=== PATIENT | female | born 1950 | race Caucasian/White ===

== ENCOUNTER 2018-09-19 00:39 | Outpatient (CLI) | payer MEDICARE, SELFPAY ==
--- NOTE | 2018-09-19 10:37 | DI.MAMMO_ITS ---
SYMPTOM/DIAGNOSIS: SCREENING, Z12.31 MAMMOGRAMS: Mammograms were interpreted according to the usual protocol including computer analysis with CAD system, tomosynthesis and C view imaging. Comparison is made with prior examinations. Breast density, Category B. No masses or microcalcifications are seen. There is nothing to suggest malignancy. IMPRESSION: Negative mammogram. Routine screening is recommended. Category 1. MQSA ASSESSMENT OF FINDINGS: Negative. Category 1. Patient will receive a letter notifying them of these results. BI-RADS category B. There are scattered areas of fibroglandular density.
== END 2018-09-19 00:59 ==
PROVIDERS: PCP Family Medicine; Visit Provider Nurse Practitioner Family
DX: Z12.31 Encounter for screening mammogram for malignant neoplasm of breast (principal)
CPT/HCPCS: 77063; 77067

== ENCOUNTER 2018-11-27 06:16 | Day surgery (SDC) | payer MEDICARE, SELFPAY ==
[2018-11-27 06:30] VITALS: BP 140/81; PULSE 70; RESP 18; TEMP 35.9; O2SAT 97
[2018-11-27] MEDS: Lactated Ringers 1,000 ML 80 ML IV (06:46)
--- NOTE | 2018-11-27 06:53 | W.COLOREPORT ---
Date of service: 11/27/18 Time of Service: 07:30 Colonoscopy Report Date of procedure: 11/27/18 Pre-op diagnosis general: Family history/ hx of benign polyps Post-op diagnosis procedure note: same (and polyps, diverticulosis) Procedure: Colonoscopy with polypectomy Surgeon: Diann Quiroz Anesthesia proc note operative: MAC (Behzad Linares CRNA/ ASA 2) Estimated blood loss (mL): 3 Pathology: other (sigmoid polyp, rectal polyps x5) Complications: None Disposition: same day Indications: Mrs. Lacy is a pleasant 68-year-old female who was seen in the office for a colonoscopy. Her last colonoscopy was in 2011 and she had some benign polyps. She also has a family history of colon cancer in her mother at around age 62. Risks, benefits and complications have been reviewed. Complications include but are not limited to bleeding, pain, perforation, missed small lesion/polyp, sore throat, aspiration and adverse reaction to the medications. Questions were entertained and answered to their satisfaction and they wished to proceed. No guarantees were given or implied. Prep: Miralax/Dulcolax Procedure Start Time: 07:30 Procedure End Time: 08:04 Retraction Time: 24 minutes Findings: 1. Sigmoid diverticulosis 1. rectal polyps 3. sigmoid polyp Procedure Description: After informed consent was obtained the patient was taken to the procedure room and placed in a left decubitous position. Monitors were applied and a time out was done. The patients name, date of , procedure, allergies to medications and metal in their body was reviewed. The patient was then sedated. Once sedated and comfortable a rectal exam was done. External exam was normal. Internal exam revealed a normal sphincter tone and no palpable masses. The scope was then introduced and retro-flexed. Small grade I internal hemorrhoids were identified. The scope was then advanced to the cecum without difficulty. The TI and appendiceal orifice were identified. The prep was good. The scope was then slowly retracted over 24 minutes back into the rectum. Polyps were removed in the sigmoid colon x1 and in the rectum x5 with a cold forceps. Moderate sigmoid diverticulosis was noted. The scope was removed and the patient was woken up and taken back to Same day surgery in stable condition. The patient tolerated the procedure well and there were no immediate complications. Follow up: The patient should follow up in 5 years unless they develop changes in bowel habits or other new gastrointestinal complaints.
--- NOTE | 2018-11-27 06:55 | W.PM.DSUDISC ---
Discharge Plan Disposition Patient Disposition: HOME Condition: Good Discharge Details Reason For Visit: Colonoscopy Attending Provider: Diann Quiroz Primary Care Provider: Nelda Oscar Home Meds and New Rx's Prescriptions: Continued atenolol 50 mg tablet 50 mg PO DAILY Qty: 90 RF: 4 Discontinued bisacodyl [Dulcolax (bisacodyl)] 5 mg tablet,delayed release (DR/EC) 5 mg PO ONCE Qty: 4 RF: 0 polyethylene glycol 3350 17 gram/dose powder 255 g PO ONCE Qty: 255 RF: 0 Discharge Instructions Instructions: Colonoscopy (DC), Diverticulosis (DC), Colorectal Polyps (DC) Additional Instructions: Findings: 5 small polyps Diverticulosis small internal hemorrhoids Follow up:5 years Please call if you develop: fevers >101.5 Nausea or Vomiting Abdominal pain that is not transient DAY SURGERY UNIT POST COLONOSCOPY INSTRUCTIONS 1. Because there will be medication in your system for the next 24 hours, you may feel a little sleepy. Your coordination will be affected. Therefore: a. Do not drive or operate dangerous equipment for 24 hours. b. Do not drink alcohol beverages for 24 hours (not even beer). c. Plan to go home and rest for the day. 2. Generally there are no restrictions on your activity after a day or so has gone by, but you may feel a bit fatigued for a few days. 3 After you arrive home you may have a light meal and return to a normal diet as you can tolerate it without feeling sick to your stomach. 4. After surgery, you may feel pain or discomfort. This should be only transient, but if it persists please contact your doctor. 5. If there are any questions regarding the findings of your procedure, please feel free to contact your doctor. 6. If you are unable to contact your doctor with a problem, contact the hospital at [phone]. 7. Continue all your regular medications unless directed otherwise. I understand the above instructions and have no questions. Signature of Patient or Responsible Adult Escort Date/Time Name of Responsible Adult Escort Signature of Nurse Date/Time Activity:: Activity as Tolerated Diet:: As Tolerated Discharge Orders Discharge Orders: Discharge Order (Routine); Ordered 11/27/18 Ordered By: Diann Quiroz DS: Diagnosis Discharge Diagnosis (1) Family history of colon cancer: Status: Chronic (2) Colon polyps: Status: Acute (3) Diverticulosis: Status: Acute (4) S/P colonoscopy: Status: Acute
--- NOTE | 2018-11-27 07:55 | BOWEL_PTH ---
PATIENT: Sheryl Lacy LOC: [facility] U#:[id number] AGE/SX: 68/F ROOM: RE11/27/[address]: Diann Quiroz MD : 1950 BED: DIS: 11/27/2018 SPEC #: [id number] RECD: 11/27/18 12:47 STATUS: AARON RE #: [id number] DARREN: 11/27/18 07:[address]: Diann Quiroz DEPT: Surgical Specimen RECD BY: Autumn Madison ENTERED: 11/27/18 12:49 SP TYPE: Bowel OTHR DR: Nelda Oscar MD, DC Tissues: 1 - BIOPSY BOWEL 2 - BIOPSY BOWEL Procedures: GROSS AND MICRO LEVEL 4 Comments: [id number]
[2018-11-27 08:40] VITALS: BP 157/74; PULSE 49; RESP 16; TEMP 35.6; O2SAT 96
== END 2018-11-27 09:00 | disposition home or self-care (01) ==
PROVIDERS: PCP Family Medicine; Visit Provider Surgery
PROC: 0DJD8ZZ Inspection of Lower Intestinal Tract, Via Natural or Artificial Opening Endoscopic (ICD-10-PCS; CPT 45378; principal; 2018-11-27 07:30)
DX: Z12.11 Encounter for screening for malignant neoplasm of colon (principal); D12.5 Benign neoplasm of sigmoid colon; K62.1 Rectal polyp; K57.30 Diverticulosis of large intestine without perforation or abscess without bleeding; Z80.0 Family history of malignant neoplasm of digestive organs; I10 Essential (primary) hypertension; J44.9 Chronic obstructive pulmonary disease, unspecified; K21.9 Gastro-esophageal reflux disease without esophagitis; K64.0 First degree hemorrhoids
CPT/HCPCS: 45380; 88305

== ENCOUNTER 2019-02-16 09:06 | Day surgery (SDC) | payer MEDICARE, SELFPAY ==
[2019-02-16 09:23] VITALS: BP 161/87; PULSE 65; RESP 18; TEMP 35.1; O2SAT 97
[2019-02-16] MEDS: Lactated Ringers 1,000 ML 80 ML IV (09:49)
[2019-02-16] MEDS: ceFAZolin 1 GM/50 ML BAG IVPB (13:05)
[2019-02-16] MEDS: Bupivacaine 0.5% Pres-Free 30 ML VIAL (13:08)
[2019-02-16] MEDS: Lidocaine 1% Pres-Free 5 ML VIAL (13:08)
[2019-02-16] MEDS: Dexamethasone 4 MG/ML VIAL (14:12)
--- NOTE | 2019-02-16 14:23 | W.PM.DSUDISC ---
Discharge Plan Disposition Patient Disposition: HOME Condition: Good Discharge Details Attending Provider: Maurilio Ortega Primary Care Provider: Nelda Oscar Home Meds and New Rx's Prescriptions: No Action atenolol 50 mg tablet 50 mg PO DAILY Qty: 90 RF: 4 Discharge Instructions Stand Alone Forms: Tracy Instructions-DSU, Fallon Hancock (DSU) Activity:: Elevate Remove Dressings/Wound Care:: Do Not Remove Shower/Bathe:: Cover Diet:: Normal Diet Discharge Orders Discharge Orders: Discharge Order (Routine); Ordered 02/16/19 Ordered By: Maurilio Ortega DS: Diagnosis Discharge Diagnosis (1) Hallux valgus (acquired), right foot: Start date: 02/16/19 Start time: 14:23 Status: Acute Asessment and Plan: hallux valgus, hammer tor 2nd digit right foot
[2019-02-16 14:51] VITALS: BP 139/80; PULSE 57; RESP 16; TEMP 35.2; O2SAT 98
--- NOTE | 2019-02-16 14:58 | ROE_ITS ---
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 POSTOPERATIVE DIAGNOSIS: Same. PROCEDURE: 1. Roni bunionectomy with internal screw fixation utilizing a 2.7 and 3.5 Synthes cortical screw. 2. Arthroplasty right second toe with 0.062 K-Wire fixation. SURGEON: Maurilio Ortega D.P.M. ANESTHESIA: IV General with local block of the first and second rays. OPERATIVE INDICATIONS: 68-year-old female with progressive irritating pain associated with a right b union and hammertoe, interfering with shoe gear, weightbearing and ambulation. Non-surgical treatmen ts have failed to provide relief of symptoms. She understands risks and complications of surgery per taining to pain, scarring, infection, stiffness of the joint, malunion, nonunion, delayed union of th e osteotomy, overcorrection, undercorrection, and difficulty with the hardware. All questions have b een answered in detail. Informed consent has been obtained. REPORT OF OPERATION: Sheryl is brought to the operative suite, placed in the supine position, wh ere the right foot is prepped and draped in the usual sterile podiatric fashion. Anesthesia being ob tained, the right foot was exsanguinated and a well-padded ankle tourniquet inflated 250 mmHg. Attention was directed to the first MPJ where a 5 cm incision was made medial and parallel to the EHL tendon. The incision was deepened in controlled depth fashion. Hemostasis acquired by electrocaute ry. Lateral joint dissection was performed, performing a lateral capsulotomy adductor tendon release , fibular sesamoid mobilization. Attention was now directed to the medial joint where an inverted L- capsulotomy was performed and the head of the first metatarsal delivered into the wound. Hypertrophy along the medial and dorsal aspects of the first metatarsal head were noted. The majority of the ar ticular surface appeared viable. With power instrumentation the medial and dorsal hyperostoses were resected; all rough and bony edges rasped smooth. An offset V-osteotomy was then performed through t he capital fragment. The head was translocated laterally, impacted, fixated with a 2.7 and a 3.5 Syn thes cortical screw. Good stability was appreciated. The medial shelf was resected; all rough and b destiny edges rasped smooth. Copious irrigation was performed. The joint capsule was closed with #3-0 V icryl and a medial capsulorrhaphy performed. The hallux remained in good position. Subcutaneous lay er was repaired with #4-0 Vicryl and the skin was coapted with continuous running suture #4-0 Monocry l. Attention was directed to the second toe where two converging semi-elliptical incisions were placed d orsally at the PIPJ level. The skin wedge was excised. Soft tissue mobilization was performed. A t ransverse tenotomy capsulotomy was performed. Medial and lateral collaterals were released and the h ead of the proximal phalanx delivered into the wound. Double-action bone-cutting forceps the head wa s resected at its surgical neck; all rough and bony edges were rasped smooth. Some contracture was s till appreciated at the MPJ level. A stab incision with a #15 scalpel was then made medial to the ex tensor tendon. The blade was placed to the deep surface of the tendon; the toe was extended and exte nsor tenotomy performed. The blade was then placed down onto the MPJ level and the joint capsule was released dorsally. The digit was now in rectus position. Copious irrigation was performed. The to e was stabilized with a 0.062 K-Wire in retrograde fashion, extending proximal to the MPJ. The exten sor tendon at the PIPJ level was shortened and sutured end-to-end with #3-0 Vicryl. The skin was siobhan sed with simple interrupted suture #4-0 Nylon, as was the stab incision over the MPJ. Four milligram s of Dexamethasone Phosphate was then infused, followed by Xeroform, half-inch Steri-Strips applied o tanisha the bunion joint incision, gauze fluff compression dressings. The tourniquet was released at six ty-three minutes, vascularity returning immediately to all toes. The patient left the OR with vital signs stable, vascular status intact. Sharp and sponge counts were correct. She will be followed by me in the office next week. cc: Nelda Oscar M.D.
== END 2019-02-16 15:28 | disposition home or self-care (01) ==
PROVIDERS: PCP Family Medicine; Visit Provider Podiatrist
PROC: (CPT 28292; principal; 2019-02-16 12:30)
PROC: (CPT 28296; 2019-02-16 12:30)
DX: M20.11 Hallux valgus (acquired), right foot (principal); M21.611 Bunion of right foot; M20.41 Other hammer toe(s) (acquired), right foot; I10 Essential (primary) hypertension
CPT/HCPCS: 28296; 28285; J0690; J1100

== ENCOUNTER 2019-05-23 01:51 | Outpatient (CLI) | payer MEDICARE, SELFPAY ==
[2019-05-23 13:14] LABS: ALT 26 U/L (12-78); AST 18 U/L (15-37); Albumin 3.9 g/dL (3.4-5.0); Alkaline Phosphatase 114 U/L (46-116); Anion Gap 11.5 mmol/L (3-11); BUN 17 mg/dL (7-18); Bilirubin, Total 0.4 mg/dL (0.2-1.0); CO2 27.5 mmol/L (21.0-32.0); CREATININE 0.81 mg/dL (0.55-1.02); Calcium 9.4 mg/dL (8.5-10.1); Calculated LDL 136 mg/dL; Chloride 103 mmol/L (98-107); Cholesterol 210 mg/dL (50-200); Glucose 91 mg/dL (70-100); HDL Cholesterol 53 mg/dL (40-60); Sodium 142 mmol/L (136-145); Total Protein 7.4 g/dL (6.4-8.2); Triglyceride 105 mg/dL (30-150)
== END 2019-05-23 02:11 ==
PROVIDERS: PCP Family Medicine; Visit Provider Family Medicine
DX: E78.5 Hyperlipidemia, unspecified (principal); I10 Essential (primary) hypertension
CPT/HCPCS: 36415; 80053; 80061; 83721

== ENCOUNTER 2019-10-15 00:53 | Outpatient (CLI) | payer MEDICARE, SELFPAY ==
--- NOTE | 2019-10-15 08:08 | DI.MAMMO_ITS ---
EXAM: MG MAMMO SCREENING CLINICAL HISTORY: Screening, Z12.39 TECHNIQUE: Bilateral full field digital CC and MLO mammographic images were obtained with 3D tomosyn thesis and utilizing computer aided detection (CAD). COMPARISON: Available for comparison. FINDINGS: Masses/Architectural Distortion: None seen. There are scattered well-circumscribed nodules in both br easts. No masses or microcalcifications are seen. Microcalcifications: No suspicious pleomorphic-type are seen. Skin Thickening/Nipple Retraction: None. IMPRESSION: 1. No significant interval change with no specific features of malignancy noted. 2. Unless there is more urgent need, screening mammography is recommended, as per [employer] guidelines. ACR BI-RAD Category- 1 Negative Breast Density - Category C - Heterogeneously dense The mammogram demonstrates the patient's breast tissue is dense. Dense breast tissue is very common a nd is not abnormal but dense breast tissue can make it harder to find cancer on a mammogram. Also, de nse breast tissue may increase their breast cancer risk. This information about the result of the [facility] mogram report was provided to the patient to raise their awareness. Use this report when you speak wi th the patient about their risks for breast cancer, which includes their family history. At that time , you may recommend for more screening tests (Ultrasound or MRI) as they might be useful based on the ir risk. A negative radiographic report should not delay biopsy if a dominant or clinically suspicious mass is present. Up to ten percent of cancers are not identified on mammography. A negative report may reinforce clinical impression. Adenosis and dense breasts may obscure an underlying neoplasm. False positive reports average 6 to 10%. Patient will receive a letter notifying them of these results.
== END 2019-10-15 01:13 ==
PROVIDERS: PCP Family Medicine; Visit Provider Nurse Practitioner Family
DX: Z12.31 Encounter for screening mammogram for malignant neoplasm of breast (principal)
CPT/HCPCS: 77063; 77067

== ENCOUNTER → 2020-04-02 09:47 | Outpatient (BNVA) | payer MEDICARE, SELFPAY | PROVIDERS: PCP Family Medicine; Referring Provider Family Medicine; Visit Provider Orthopaedic Surgery | DX: M67.441 Ganglion, right hand (principal); I10 Essential (primary) hypertension | CPT/HCPCS: 99202; 99213 ==

== ENCOUNTER 2020-04-25 08:44 | Outpatient (CLI) | payer MEDICARE, SELFPAY ==
[2020-04-26 00:48] LABS: COVID-19 RT-PCR UVMMC Result Negative (Negative)
== END 2020-04-25 09:04 ==
PROVIDERS: PCP Family Medicine; Visit Provider Orthopaedic Surgery
DX: Z11.59 Encounter for screening for other viral diseases (principal); Z01.818 Encounter for other preprocedural examination
CPT/HCPCS: U0003

== ENCOUNTER 2020-04-28 07:17 | Day surgery (SDC) | payer MEDICARE, SELFPAY ==
[2020-04-28 07:34] VITALS: BP 170/90; PULSE 58; RESP 16; TEMP 36.5; O2SAT 99
[2020-04-28] MEDS: Lidocaine 2% Multi-Dose 50 ML VIAL (08:54)
--- NOTE | 2020-04-28 09:17 | PDOC.DSDIS_ITS ---
Discharge Plan Disposition Patient Disposition: HOME Condition: Good Discharge Details Reason For Visit: EXCISION MUCOUS CYST RIF Attending Provider: Eulalio Roe Primary Care Provider: Nelda Oscra Home Meds and New Rx's Prescriptions: New hydrocodone-acetaminophen 5-325 mg tablet 1 tab PO Q6H PRN (Reason: pain) Qty: 7 RF: 0 Continued hydrochlorothiazide 12.5 mg tablet 12.5 mg PO QAM Qty: 90 RF: 4 atenolol 50 mg tablet 50 mg PO DAILY Qty: 90 RF: 4 Discharge Instructions Additional Instructions: Try to elevate R index finger above heart level as much as possible overnite tonite. Keep dressings dry until return. Return to 's office in one week for wound check. Take tylenol or ibuprofen for mild pain. Take hydrocodone for breakthru pain, if needed. Referrals: Eulalio Roe MD [ [facility]FF [facility]YSICIAN] - (f/u in one week.) Activity:: Activity as Tolerated Remove Dressings/Wound Care:: Do Not Remove Shower/Bathe:: Cover Diet:: As Tolerated Discharge Orders Discharge Orders: Discharge Order (Routine); Ordered 04/28/20 Ordered By: Eulalio Roe DS: Diagnosis Discharge Diagnosis (1) Mucous cyst of finger: Status: Acute
--- NOTE | 2020-04-29 12:41 | ROE_ITS ---
Date of service: 04/28/20 Time of Service: 11:00 Operative Note Operative Note DATE OF PROCEDURE: 04/28/20 PRE-OP DIAGNOSIS: Mucous cyst right index finger POST-OP DIAGNOSIS: same PROCEDURE: Excision mucous cyst right index finger SURGEON: Eulalio Roe ANESTHESIA: local ESTIMATED BLOOD LOSS: 10 PATHOLOGY: none sent COMPLICATIONS: None Patient was transported to: same day Patient's condition: stable Indications: This is a 70-year-old white female who developed a cyst near the base of her right fingernail of her right index finger several months ago. She says that she is used a needle to miguelangel it on several occasions, but it always comes back. All she has notices some clear fluid with this. As it enlarges or causes her pain. She would like to have it removed. Risk of complication procedure explained patient detail preop. Procedure Description: Patient taken the operating room on 04/28/2020 and placed supine on the operating table. The right hand was prepped and draped free in usual sterile fashion. I performed a digital block to the right index finger at the level of the metacarpophalangeal joint. I used a 2% Xylocaine solution and point to 5% Marcaine with epinephrine solution. Once good digital block was obtained I made an incision starting at the cuticle of the nail elliptically around the mucous cyst and extending longitudinally and distally to the DIP joint. The cyst was excised along with the overlying skin. I could palpate a bony spur at the base radial base of the distal phalanx of the right index finger. I remove this bony spur with a rongeur. I undermined the skin edges with a 10 blade so they can be mobilized without tension. The wound was irrigated saline solution. I approximated the skin edges without tension using interrupted 4 nylon sutures. Wounds dressed with Xeroform gauze followed by tube gauze. Patient tolerated suture well was discharged to discharge unit good condition. Patient was given instructions to keep her dressings clean and dry until follow- up in 1 week in my office. She may use her right hand is much as discomfort allows. She should take Tylenol or ibuprofen for pain.
== END 2020-04-28 09:40 | disposition home or self-care (01) ==
PROVIDERS: PCP Family Medicine; Visit Provider Orthopaedic Surgery
PROC: (CPT 26160; principal; 2020-04-28 08:30)
DX: M25.741 Osteophyte, right hand (principal); L72.8 Other follicular cysts of the skin and subcutaneous tissue
CPT/HCPCS: 26210

== ENCOUNTER → 2020-05-06 08:45 | Outpatient (BNVA) | payer MEDICARE, SELFPAY | PROVIDERS: PCP Family Medicine; Referring Provider Family Medicine; Visit Provider Orthopaedic Surgery | DX: Z47.89 Encounter for other orthopedic aftercare (principal); M67.441 Ganglion, right hand ==

== ENCOUNTER → 2020-05-13 10:47 | Outpatient (BNVA) | payer MEDICARE, SELFPAY | PROVIDERS: PCP Family Medicine; Referring Provider Family Medicine; Visit Provider Orthopaedic Surgery | DX: Z47.89 Encounter for other orthopedic aftercare (principal); M67.441 Ganglion, right hand ==

== ENCOUNTER 2021-07-30 16:10 | Outpatient (REF) | payer MEDICARE, SELFPAY ==
[2021-07-30 17:39] LABS: ALT 23 U/L (14-59); AST 19 U/L (15-37); Albumin 4.2 g/dL (3.4-5.0); Alkaline Phosphatase 97 U/L (46-116); Anion Gap 12.5 mmol/L (3-11); BUN 18 mg/dL (7-18); Bilirubin, Total 0.5 mg/dL (0.2-1.0); CO2 25.5 mmol/L (21.0-32.0); CREATININE 1.1 mg/dL (0.55-1.02); Calcium 9.5 mg/dL (8.5-10.1); Chloride 103 mmol/L (98-107); Estimated GFR 48.96 (mL/min/1.73m2); Glucose 120 mg/dL (74-106); Potassium 3.9 mmol/L (3.5-5.1); Sodium 141 mmol/L (136-145); Total Protein 8.2 g/dL (6.4-8.2)
== END 2021-07-30 16:11 | disposition home or self-care (01) ==
LOC: LBN 16:10
PROVIDERS: PCP Family Medicine; Visit Provider Family Medicine
DX: I10 Essential (primary) hypertension (principal); E78.5 Hyperlipidemia, unspecified; R73.01 Impaired fasting glucose
CPT/HCPCS: 80053

== ENCOUNTER 2022-11-18 01:16 | Outpatient (CLI) | payer MEDICARE, SELFPAY ==
--- NOTE | 2022-11-18 07:00 | DI.CTLCSR_ITS ---
Exam(s) CT CHEST LUNG CANCER SCREEN EXAM: CT CHEST LUNG CANCER SCREEN CLINICAL HISTORY: Screening for lung cancer,former smoker, z87.891. TECHNIQUE: Imaging Protocol: Low Dose Technique CONTRAST MATERIAL: None COMPARISON: CR CHEST 2 VIEWS PA,LAT from 05/04/2016 CT CHEST FOR PULMONARY EMBOLUS from 05/06/2016 FINDINGS: CHEST: LUNGS: There is an unchanged small subpleural 4-5 mm nodule in the lateral aspect of the right lung i s either of the lower aspect of middle lobe are aspect right middle lobe. Lower down there is an unc hanged slightly larger pleural based nodule the lateral segment the right middle lobe, also unchanged from April 2016. There are benign-appearing increased markings in the posterior basal segment of the right lower lobe. There are no significant focal left lung findings. No pleural effusions on eithe r side. No significant focal findings in the trachea and mainstem bronchi. No confluent infiltrates . MEDIASTINUM: There is no obvious hilar nor mediastinal adenopathy. CARDIAC: Heart size is normal. There is no pericardial effusion.Caliber of the thoracic aorta is wit hin normal limits. OTHER: OSSEOUS: No significant osseous lesions.. IMPRESSION: 1. Stable appearance of 2 subpleural nodular densities in the right lung as described above, these un changed from prior CT scan of 05/06/2016. There are no new additional lung nodules nor pleural effus ions nor obvious intrathoracic adenopathy. 2. There are mild benign-appearing increased markings in the posterior basal segment the right lower lobe. 3. Lung RADS Cat 2 - Benign Appearance / Behavior: Nodules with a very low likelihood of becoming a c linically active cancer due to size or lack of growth Lung-RADS 1.0 CATEGORIES: Category 0 - Prior chest CT exam(s) being located for comparison. Category 1 - Annual screening in 12 months. No nodules or definitely benign nodules. Category 2 - Annual screening in 12 months. Benign appearance. Nodules with low likelihood of becomin g active cancer. Category 3 - 6-month follow-up. Probably benign. Short-term follow-up suggested. Nodules with low lik elihood of becoming active cancer. Category 4A - 3-month follow-up and CT/PET if >8 mm in size. Suspicious finding. Findings which requi re additional testing. Category 4B - Findings which require additional testing and tissue sampling. Category 4X - Category 3 or 4 nodules with additional features or imaging findings that increases the suspicion of malignancy. Modifier S- Potentially clinically significant findings (non lung cancer) RADIATION DOSE DELIVERED: 81.75mGy.cm Total DLP DATA REPOSITORY: All CT scans at this facility are submitted to the National Radiology Data Registry (NRDR) Dose Index Registry (DIR) with the [employer] (ACR). RADIATION OPTIMIZATION: All CT scans at this facility use at least one of these dose optimization te chniques: automated exposure control; mA and/or kV adjustment per patient size (includes targeted exa ms where dose is matched to clinical indication); or iterative reconstruction.
--- NOTE | 2022-11-18 07:00 | DI.US_ITS ---
Exam(s) US ABDOMEN EXAM: US ABDOMEN CLINICAL HISTORY: abdominal pain/s/p mickey,r10.9 TECHNIQUE: Ultrasound of complete upper abdomen performed using standard protocol. COMPARISON: US ABDOMEN ULTRASOUND (P) from 10/27/[address] CHEST LUNG CANCER SCREEN from 11/18/2022 FINDINGS: There is no ascites evident. LIVER: There are no hepatic lesions evident nor obvious dilatation of intrahepatic ducts. GALLBLADDER/BILIARY: Gallbladder surgically absent. The common hepatic duct isnot dilated, measuring 2mm at the level of hoang hepatis. PANCREAS: There is no evidence of pancreatic mass nor dilatation of the pancreatic duct. SPLEEN: The spleen is not enlarged and there are no intrasplenic lesions evident. KIDNEYS:Kidneys exhibit normal size with no evidence of solid mass, calculus, nor hydronephrosis. No cortical cysts evident. ABDOMINAL AORTA: The abdominal aorta is atherosclerotic. It exhibits a lack of normal tapering dista lly. IVC: Normal diameter where visualized. IMPRESSION: 1. Gallbladder surgically absent. Biliary tree is not dilated 2. Abdominal aorta appears atherosclerotic and exhibits lack of normal tapering distally. As the ne xt step I recommend either CT or Doppler ultrasound examination dedicated to the abdominal aorta and common iliac arteries. DATA REPOSITORY:
--- NOTE | 2022-11-18 07:00 | DI.RAD_ITS ---
Exam(s) XR THORACIC SPINE COMPLETE EXAM: XR THORACIC SPINE COMPLETE CLINICAL HISTORY: T6-7 pain,m54.6. TECHNIQUE: 2D digital imaging was performed. COMPARISON: No exams were available for comparison FINDINGS: 3 views There is a mild scoliosis convex left mid-lower thoracic spine. This extends from approximately T7-T 12. Is no evidence of fracture listhesis. No space narrowing there is no abnormal widening of the p araspinal lines. Bone density is age-appropriate. No osseous lesions. IMPRESSION: Mild scoliosis convex left, as described above. No other significant osseous findings in the thoraci c spinal column. DATA REPOSITORY: RADIATION DOSE DELIVERED:
== END 2022-11-18 01:36 ==
LOC: DI 01:16
PROVIDERS: PCP Family Medicine; Visit Provider Family Medicine
DX: Z87.891 Personal history of nicotine dependence (principal); R10.9 Unspecified abdominal pain; M41.9 Scoliosis, unspecified; Z12.2 Encounter for screening for malignant neoplasm of respiratory organs; R91.8 Other nonspecific abnormal finding of lung field; R93.5 Abnormal findings on diagnostic imaging of other abdominal regions, including retroperitoneum
CPT/HCPCS: 71271; 72072; 76700

== ENCOUNTER 2022-11-18 02:24 | Outpatient (CLI) | payer MEDICARE, SELFPAY ==
[2022-11-18 10:25] LABS: HCT 41.5 % (36.0-46.0); HGB 13.2 g/dL (11.2-15.7); MCH 29.5 pg (27.0-33.0); MCHC 31.8 % (32.0-36.0); MCV 93 fL (80-95); MPV 9.6 fL (8.0-11.0); Platelet Count 332 10^3/uL (130-400); RBC 4.48 10^6/uL (3.93-5.22); RDW 14.4 % (11.7-14.6)
[2022-11-18 11:05] LABS: ALT 20 U/L (14-59); AST 23 U/L (15-37); Albumin 3.6 g/dL (3.4-5.0); Alkaline Phosphatase 93 U/L (46-116); Anion Gap 9.1 mmol/L (3-11); BUN 18 mg/dL (7-18); Bilirubin, Total 0.4 mg/dL (0.2-1.0); CO2 28.9 mmol/L (21.0-32.0); CREATININE 1.1 mg/dL (0.55-1.02); Calcium 9.9 mg/dL (8.5-10.1); Chloride 106 mmol/L (98-107); Estimated GFR 53.39 (mL/min/1.73m2); Glucose 106 mg/dL (74-106); Potassium 4.7 mmol/L (3.5-5.1); Sodium 144 mmol/L (136-145); TSH (W/Ref FT4) 11.11 uIU/mL (0.36-3.74); Total Protein 8.6 g/dL (6.4-8.2)
[2022-11-18 11:32] LABS: FREE T4 1.06 ng/dL (0.76-1.46)
== END 2022-11-18 02:25 | disposition home or self-care (01) ==
LOC: LBO 02:24
PROVIDERS: PCP Family Medicine; Visit Provider Family Medicine
DX: R10.9 Unspecified abdominal pain (principal); R19.8 Other specified symptoms and signs involving the digestive system and abdomen
CPT/HCPCS: 36415; 71271; 80053; 85027; 72072; 76700; 84439; 84443

== ENCOUNTER 2022-12-28 00:16 | Outpatient (CLI) | payer MEDICARE, SELFPAY ==
--- NOTE | 2022-12-28 07:45 | DI.US_ITS ---
APPROVED REPORT EXAM: Comprehensive 2D, Doppler, and color-flow Echocardiogram Patient Location: Out-Patient Manager Export: Brigitte Oneil RDCS (AE) Indications: New murmur, HTN Other Information Study Quality: Adequate Conclusion Normal left ventricular wall thickness and chamber size. Estimated ejection fraction is 60%. Wall m otion is normal Normal right ventricular size and systolic function Left atrium is moderately dilated. Right atrial size is normal Aortic valve is sclerotic and trileaflet with trace regurgitation Thickened mitral leaflets. There is moderate to severe eccentric mitral regurgitation Normal tricuspid valve with trace regurgitation. Estimated right ventricular systolic pressure is 42 mmHg Wall motion Left Ventricle The left ventricle is normal size. The left ventricular systolic function is normal. The left ventric ular ejection fraction is within the normal range. There is normal left ventricular wall thickness. T here is normal LV segmental wall motion. There is no ventricular septal defect visualized. LVEF is 60 %. Right Ventricle The right ventricle is normal size. The right ventricular systolic function is normal. The RVSP is 41 .6 mmHg. Atria Left atrium is moderately dilated. The right atrium size is normal. The interatrial septum is intact with no evidence for an atrial septal defect. Aortic Valve The Aortic valve is mildly sclerotic. Aortic valve is trileaflet. There is no aortic valvular stenosi s. Trace aortic regurgitation. Mitral Valve Mitral valve leaflets are mildly thickened. Moderate to severe mitral regurgitation Mitral regurgita tion jet is eccentrically directed. Tricuspid Valve The tricuspid valve is normal in structure. There is no tricuspid valve stenosis. Trace tricuspid reg urgitation. Pulmonic Valve The pulmonary valve is normal in structure. There is no pulmonic valvular stenosis. Trace pulmonic re gurgitation. Great Vessels The aortic root is normal in size. Ascending aorta is not well visualized. Aortic arch is normal in c aliber. IVC is normal in size and collapses >50% with inspiration. Pericardium There is no pericardial effusion. 2D Dimensions IVSD d PLAX 0.82 cm F: 0.6-1.0 LV Vol A2C d MOD 144.1 mL LVPW d PLAX 0.87 cm F: 0.6 - 1.0 LV Vol A4C d MOD 122.7 mL LVID d PLAX 5.47 cm F: 3.8 - 5.2 LA vol/ BSA A4C s A-L 40.8 mL/m2 LVDs 3.70 cm F: 2.2 - 3.5 LA Area A4C s MOD 21.17 cm2 Ao Root d 2.28 cm F: 2.7 - 3.3 LV EF A4C MOD 59.8 % RA Area A4C 10.43 cm2 LV EF A2C MOD 58.6 % RA Vol/ BSA A4C s A-L 15.9 mL/m2 LV EF Biplane MOD 59.9 % LV EF Teichholz 59.1 % SV 81.65 mL LVEF (Strickland's) 59.88 % F: 54 - 74 SV Index 53.82 mL/m2 LV Volume 113.12 mL F: 46 - 106 LV Volume Index 74.42 mL/m2 F: 29 - 61 LV Vol Biplane MOD 136.4 mL FS 31.65 % M-Mode TAPSE 2.35 cm (M/F) >1.7 LV Diastology MV E' medial 0.054 (>0.07 m/s) E/A Ratio 1.8 LV E/e MED 23.60 (<14) MV E Vmax 1.27 (0.4-1.3 m/s) MV E' lateral 0.139 (>0.1 m/s) MV A Vmax 0.70 (0.4-1.3 m/s) LV E/e LAT 9.15 (<14) MV E/A Ratio 1.74 MV E/E' medial 23.64 MV E/E' lateral 9.15 Aortic Valve LVOT Area 3.24 cm2 AoV Area Vmax 2.10 cm2 LVOT Vmax 1.05 m/s AoV Area/ BSA (Vmax) 1.38 cm2/m2 LVOT Mean Abhijeet. 0.72 m/s CAMILLE Mean Abhijeet. 2.06 cm2 LVOT Peak Grad 4.4 mmHg CAMILLE Mean Abhijeet. Index 1.36 cm2/m2 LVOT Mean Grad 2.4 mmHg LVOT VTI 0.227 m LVOT Diam s 2.00 cm AoV Vmax 1.61 m/s Velocity Ratio 0.65 AoV Mean Abhijeet. 1.14 m/s AoV Peak Grad 10.4 mmHg LVOT SV 73.58 mL AoV Mean Grad 5.8 mmHg AoV VTI 0.342 m AoV Area VTI 2.15 cm2 AoV Area/ BSA (VTI) 1.42 cm/m2 Mitral Valve MV DT 184 (160-240 msec) MR Vmax 5.83 m/s MV PHT 53 msec MR VTI 2.049 m MV Area PHT 4.13 cm2 MR Peak Grad 136.1 mmHg MV VTI 0.486 m MR Mean Grad 87.1 mmHg MV VTI Annulus 0.501 m MR PISA Radius 0.91 cm MV Area VTI 1.56 (4.0-6.0 cm2) MR EROA 0.31 cm2 MR Aliasing Velocity 0.35 m/s MR PISA 5.19 cm2 Pulmonary Valve PV Vmax 0.86 (0.5-1.5 m/s) RVOT Peak Gr. 2.14 mmHg PV Peak Grad 3.0 mmHg RVOT Mean Gr. 1.20 mmHg PV Mean Grad 1.8 mmHg RVOT VTI 0.187 m PV VTI 0.187 m RVOT Vmax 0.73 m/s Tricuspid Valve TR Peak Grad 38.5 mmHg TR Vmax 3.10 m/s RA Pressure 3.00 mmHg RVSP (TR) 41.6 mmHg
== END 2022-12-28 00:36 ==
LOC: DI 00:16
PROVIDERS: PCP Family Medicine; Visit Provider Family Medicine
DX: I10 Essential (primary) hypertension (principal); R01.1 Cardiac murmur, unspecified
CPT/HCPCS: 93306

== ENCOUNTER 2023-06-08 03:43 | Outpatient (CLI) | payer MEDICARE, SELFPAY ==
[2023-06-08 11:11] LABS: ALT 24 U/L (14-59); AST 24 U/L (15-37); Albumin 3.6 g/dL (3.4-5.0); Alkaline Phosphatase 101 U/L (46-116); Anion Gap 9.4 mmol/L (3-11); BUN 15 mg/dL (7-18); Bilirubin, Total 0.5 mg/dL (0.2-1.0); CO2 27.6 mmol/L (21.0-32.0); CREATININE 1.2 mg/dL (0.55-1.02); Calcium 9.4 mg/dL (8.5-10.1); Chloride 101 mmol/L (98-107); Glucose 106 mg/dL (74-106); Potassium 3.3 mmol/L (3.5-5.1); Sodium 138 mmol/L (136-145); TSH (W/Ref FT4) 1.98 uIU/mL (0.36-3.74); Total Protein 7.9 g/dL (6.4-8.2)
== END 2023-06-08 03:44 | disposition home or self-care (01) ==
LOC: LOS 03:43
PROVIDERS: PCP Family Medicine; Visit Provider Family Medicine
DX: I10 Essential (primary) hypertension (principal); R79.89 Other specified abnormal findings of blood chemistry
CPT/HCPCS: 36415; 80053; 84443

== ENCOUNTER → 2023-06-27 09:19 | Outpatient (BNVA) | payer MEDICARE, SELFPAY | PROVIDERS: PCP Family Medicine; Referring Provider Family Medicine; Visit Provider Surgery | DX: K64.8 Other hemorrhoids (principal) | CPT/HCPCS: 46600; 99203 ==

== ENCOUNTER 2023-07-20 06:11 | Day surgery (SDC) | payer MEDICARE, SELFPAY ==
[2023-07-20 06:15] VITALS: BP 168/91; PULSE 61; RESP 18; TEMP 36.3; O2SAT 99
[2023-07-20] MEDS: metroNIDAZOLE 500 MG/100 ML BAG 100 MG IVPB (06:45)
[2023-07-20] MEDS: Gabapentin 300 MG CAP 600 MG PO (06:50)
[2023-07-20] MEDS: Celecoxib 200 MG CAP PO (06:51)
[2023-07-20] MEDS: Lactated Ringers 1,000 ML 80 ML IV (06:51)
[2023-07-20] MEDS: Acetaminophen 500 MG TAB 1000 MG PO (06:51)
--- NOTE | 2023-07-20 06:56 | W.PM.PROGNOT ---
Date of Service Date of service: 07/20/23 Time of Service: 07:00 Assessment and Plan Assessment and plan (1) Hemorrhoid prolapse: Status: Acute Assessment and plan: Ms Kyle is a pleasant 73-year-old female was quite active who comes in today at the request of her primary care physician because of ongoing issues with hemorrhoids.? She has both internal and external hemorrhoids on exam.? We reviewed the pathophysiology of hemorrhoids as well as the procedure of internal hemorrhoid banding and external hemorrhoid resection.? I used a pamphlet to assist in explaining the procedure.? We discussed the risks, benefits and complications.? At this time after 10 months of trialing nonsurgical treatments I think her best option is to undergo an internal and external hemorrhoidectomy with an exam under anesthesia.? The patient has a good understanding of the procedure and the complications and risks and wishes to proceed.? Complications include but are not limited to bleeding, infection, injury to the sphincter muscle with incontinence, recurrence.? We reviewed management of pain after the procedure.? Her questions were entertained and answered to her satisfaction and she wished to proceed.? No guarantees were given or implied. (2) Hemorrhoids: Status: Acute Subjective Subjective Interval history since last seen: Briatny is doing well. She has not had any worsening issues with her internal and external hemorrhoids. She has not had any upper respiratory colds. We reviewed the procedure again as well as the potential risks and complications. Exam Const General: cooperative, comfortable and no acute distress Nutritional Appearance: thin Orientation: alert and oriented x3 HENMT Head: normocephalic and atraumatic Resp Effort & Inspection: normal respiratory effort Cardio Rate: regular rate Rhythm: regular rhythm Objective Last Vital Signs Temp 97.3 F L 07/20/23 06:15 Pulse 61 07/20/23 06:15 Resp 18 07/20/23 06:15 BP 168/91 H 07/20/23 06:15 Pulse Ox 99 07/20/23 06:15 Time Spent with Patient Time Spent with Patient: <25 minutes Time was spent: counseling the patient
--- NOTE | 2023-07-20 07:00 | ROE_ITS ---
Date of service: 07/20/23 Time of Service: 08:33 Operative Note Operative Note DATE OF PROCEDURE: 07/20/23 PRE-OP DIAGNOSIS: internal and external hemorrhoids POST-OP DIAGNOSIS: same PROCEDURE: Exam under anesthesia internal hemorrhoid banding external hemorrhoid excision SURGEON: Diann Quiroz ANESTHESIA TYPE: General:No Airway and Spinal Refer to Anesthesia Record ESTIMATED BLOOD LOSS: 10 PATHOLOGY: other (hemorrhoidal tissue) COMPLICATIONS: None Patient was transported to: same day Patient's condition: stable Indications: Ms Kyle is a pleasant 73-year-old female was quite active who comes in today at the request of her primary care physician because of ongoing issues with hemorrhoids.? She has both internal and external hemorrhoids on exam.? We reviewed the pathophysiology of hemorrhoids as well as the procedure of internal hemorrhoid banding and external hemorrhoid resection.? I used a pamphlet to assist in explaining the procedure.? We discussed the risks, benefits and complications.? At this time after 10 months of trialing nonsurgical treatments I think her best option is to undergo an internal and external hemorrhoidectomy with an exam under anesthesia.? The patient has a good understanding of the procedure and the complications and risks and wishes to proceed.? Complications include but are not limited to bleeding, infection, injury to the sphincter muscle with incontinence, recurrence.? We reviewed management of pain after the procedure.? Her questions were entertained and answered to her satisfaction and she wished to proceed.? No guarantees were given or implied. Findings: internal hemorrhoids and external Procedure Description: After informed consent was obtained the patient was taken to the Operating room and asked to sit on the operating room table. A spinal was done by anesthesia. Please see their separate record. Once her buttocks and lower extremities felt heavy and numb the patient was placed in a prone position. Her buttocks were using tape on either side. She was given some sedation. Next a time out was done and the patients name, , allergies to medications, antibiotic given, procedure to be done were reviewed. Fire risk was assessed. Next the buttocks and kaity-anal area were prepped with iodine and draped in a standard fashion. Next exparel mixed 50/50 with bupivocaine was injected circumferentially around the rectum. A rectal retractor was then placed into the rectum. Next Grade 2 and 3 internal hemorrhoids as well as external hemorrhoids were identified circumferentially. The hermorrhoids were all removed using a handheld ligasure. The mucosa was re-approximated with a running 4-0 vicryl suture. The area was inspected. One small internal hemorrhoid was then noted at the 12 o'clock position and banded. The retractor was removed. Lidocaine ointment was placed into the rectum. The skin was cleaned and dried. An ABD was placed and secured with mesh panties. The patient was then placed on a gurney in a supine position and taken back to [facility]. The patient tolerated the procedure well and there were no complications.
--- NOTE | 2023-07-20 07:02 | PDOC.DSDIS_ITS ---
Date of service: 07/20/23 Time of Service: 08:51 Discharge Plan Disposition Patient Disposition: Home Condition: Stable Discharge Details Reason For Visit: hemorrhoids Attending Provider: Diann Quiroz Primary Care Provider: Nelda Oscar Home Meds and New Rx's Prescriptions: New lidocaine 5 % ointment 1 applic topical QID PRNQty: 50 1RF tramadol 50 mg tablet 50 mg PO Q6H PRNQty: 14 0RF polyethylene glycol 3350 [Miralax] 17 gram/dose powder 17 g PO DAILY Qty: 238 0RF Rx Instructions: Hold if you have diarrhea Continued psyllium husk [Metamucil] 0.4 gram capsule 0.8 g PO DAILY atenolol 50 mg tablet 50 mg PO DAILY Qty: 90 4RF Rx Instructions: in place of 25mg tabs hydrochlorothiazide 12.5 mg tablet 12.5 mg PO QAM Qty: 90 4RF triamcinolone acetonide 0.1 % cream 1 applic topical BID Qty: 80 0RF Rx Instructions: apply to foot potassium chloride 10 mEq tablet extended release 10 meq PO DAILY Qty: 30 12RF Discharge Instructions Instructions: High Fiber Diet (DC), Hemorrhoidectomy (DC) Additional Instructions: Activity at Home after surgery: 1. Make sure you walk at least 4 times per day 2. You should be able to climb a flight of stairs 3. No driving while in pain or taking pain medications 4. No strenuous activity or heavy lifting for 4 weeks (open surgery) Diet, Nutrition, & wound healin. Avoid alcohol until after you are recovered from your surgery 2. Make sure to eat plenty of lean protein (meat, fish, eggs, cottage cheese, beans) 3. Eat a variety of fruits and vegetables. Eat plenty of high fiber foods to avoid constipation. 4. Drink plenty of liquids to stay hydrated and avoid constipation Pain Medications: 1. Tylenol 650mg every 6 hours as needed and Ibuprofen 600 mg every 6 hours as needed. You may alternate between the 2 medications every 3 hours 2. If a narcotic has been prescribed take as directed only for breakthrough pain For Constipation: 1. Take Milk of Magnesia or MiraLax as needed for constipation Other: 1. You may shower daily. Do not scrub the incisions 2. Do not soak the incisions for 1 week 3. You may alternate ice and heat as needed for pain and swelling 4. Sitz baths at least 4 times a day and as needed for pain 5. You may have some bleeding. If it is more then a couple of tablespoons please call Please call our office if you develop: 1. Fevers >101.5 2. Nausea or Vomiting 3. Worsening pain 4. Redness and thick discharge from the wounds 5. Bleeding that is more then 2-3 tablespoons. 6. inability to urinate If after hours please call the Hospital at and ask to speak to the on-call surgeon Dr. Quiroz's Cell phone: [phone] (If I do not answer I may not have service. Please call the office or hospital if that is the case) Stand Alone Forms: Anesthesia Discharge InstFallon Richey (U) Referrals: Diann Quiroz MD [ [facility] STAFF PHYSICIAN] - 07/29/23 8:00 am Activity:: see above Shower/Bathe:: 24 hours Diet:: As Tolerated Discharge Orders Discharge Orders: Discharge Order (Routine); Ordered 07/20/23 Ordered By: Diann Quiroz DS: Diagnosis Discharge Diagnosis (1) Hemorrhoid prolapse: Status: Acute (2) Hemorrhoids: Status: Acute Asessment and Plan: The patient is doing well post-op from their exam under anesthesia with internal and external hemorrhoidectomy surgery.? They are having no nausea or vomiting. They are tolerating liquids and a snack. The pt is not having any chest pain or SOB.? Their pain is adequately controlled. They have been able to urinate.? ?HEENT:? no eye pain/drainage/redness/swelling. Mild sore throat ?Cardio- NSR, no chest pain, BP stable- see VS record ?Pulm: no sob or productive cough. No hemoptysis ?Incision- dressing is c/d/i w/ no excessive bleeding or drainage ?I discussed with the patient the findings at the time of surgery and the patient?s progress. ?We reviewed expectations at home; what the patient could expect for recovery time, and in the post-operative period.? We discussed the importance of walking to avoid blood clots and pneumonia.? We discussed and reviewed the patient's post-operative wound care and dressing needs.?? We reviewed their step-mckeon pain management plan, Rx called to the pharmacy of their choice.? We reviewed activity and limitations-see discharge instructions. We reviewed warning signs, and when to seek medical attention- see d/c instructions.?? Patient was given a postoperative follow-up appointment. Patient verbalized understanding of their postoperative instructions, how do to take care of themselves and their incision, and the pain management plan. Please see discharge instructions.?
--- NOTE | 2023-07-20 07:03 | W.ANESPRE ---
General Info Date of Service Date Performed: 07/20/23 Height: 5 ft 3 in Weight: 49.5 kg Body Mass Index (BMI): 19.3 Surgical Procedure: Operation Date: 07/20/23 07:40 Proposed Procedure Side Surgeon p Exam Under Anesthesia Diann Quiroz MD s Hemorrhoidectomy, Internal & External Diann Quiroz MD Meds Allergies and Home Medications Allergies Allergy/AdvReac Type Severity Reaction Status Date / Time nitrofurantoin Allergy Severe FELT LIKE Verified 07/20/23 06:30 AIRWAY WAS CLOSING UP Home Medication Medication Instructions Recorded atenolol 50 mg tablet 50 mg PO DAILY #90 tab-caps 08/02/22 hydrochlorothiazide 12.5 mg tablet 12.5 mg PO QAM #90 tabs 08/02/22 triamcinolone acetonide 0.1 % 1 applic topical BID #80 grams 06/06/23 topical cream potassium chloride 10 mEq 10 meq PO DAILY #30 tabs 06/08/23 tablet,extended release psyllium husk 0.4 gram capsule 0.8 g PO DAILY 06/27/23 (Metamucil) Current Visit Medications: Current Medications Generic Name Dose Route Start Last Admin Trade Name Freq PRN Reason Stop Dose Admin Acetaminophen 1,000 mg 07/20/23 06:00 07/20/23 06:51 Acetaminophen 500 Mg Tab PO 08/18/23 23:59 1,000 mg PREOP TYRA Administration Celecoxib 200 mg 07/20/23 06:00 07/20/23 06:51 Celecoxib 200 Mg Cap PO 08/18/23 23:59 200 mg PREOP TYRA Administration Gabapentin 600 mg 07/20/23 06:00 07/20/23 06:50 Gabapentin 300 Mg Cap PO 08/18/23 23:59 600 mg PREOP TYRA Administration Ringer's Solution 1,000 mls @ 80 mls/hr 07/20/23 06:00 07/20/23 06:51 IV 08/18/23 23:59 80 mls/hr INFUSION TYRA Administration Metronidazole 500 mg in 100 mls @ 100 mls/hr 07/20/23 06:00 07/20/23 06:45 Flagyl IVPB 07/20/23 16:00 100 mls/hr PREOP TYRA Administration Ondansetron HCl 4 mg/ Sodium 52 mls @ 200 mls/hr 07/20/23 06:53 Chloride IVPB 08/19/23 06:52 Q6H PRN PRN IV Miscellaneous Supplies 1 each 07/20/23 06:00 Iv Access IV 08/18/23 23:59 DIRECTED TYRA Sodium Chloride 0 ml 07/20/23 06:00 Normal Saline Flush 10 Ml Syr IV 08/18/23 23:59 PRN PRN Sodium Chloride 0 ml 07/20/23 06:00 Normal Saline 10 Ml Vial IJ 08/18/23 23:59 DIRECTED PRN Sterile Water 0 ml 07/20/23 06:00 Water,Injection,Sterile 10 Ml Vial IJ 08/18/23 23:59 DIRECTED PRN Tramadol HCl 50 mg 07/20/23 06:53 Tramadol 50 Mg Tab PO 08/19/23 06:52 Q6H PRN PRN Pain PFSH Active Problems Active Problems: Problem Status Onset Code Hemorrhoids K64.9 Hemorrhoid prolapse K64.8 Abnormal thyroid blood test R79.89 Pulmonary hypertension I27.20 Severe mitral regurgitation I34.0 Murmur, cardiac R01.1 Abdominal pain R10.9 Tubular adenoma of colon ~11/27/18 D12.6 Chronic interstitial cystitis N30.10 Hypertension I10 Hiatal hernia 11/11/16 K44.9 Esophagitis, erosive 10/25/16 K22.10 Cervical spondylolysis M43.02 Medical History Medical History Abdominal pain 10/24/12 Abdominal pain (10/24/12) 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 states she has not had this in a while Hallux valgus (acquired), right foot Hematuria 03/16 IVP NEG; Dr. Landeros--Urologist Hematuria History of ectopic HTN (hypertension) Hx of ectopic s/p oophorectomy Hyperlipidemia pt. states she is not sure if she has this or not. Impaired fasting glucose Elevated fasting glucose, normal f/u Impaired fasting glucose Injury of head 09/15 DISABILITY Interstitial cystitis bladder s/p cyst excision; Irritable colon Knee pain s/p ACL repair and scar revision Knee pain Mucous cyst of finger Osteopenia 10/19 DEXA: -2.1/-2.4/-2.1 Other specified diseases of gallbladder BILIARY DYSKINESIA Post-menopausal atrophic vaginitis (12/14/11) Sigmoid diverticulosis Sigmoid diverticulum Thoracic back pain Tobacco use disorder quit 11/17 Tobacco use disorder Surgical History Surgical History Abdominal hysterectomy ENDOMETRIOSIS; OOPHORECTOMY; LYSIS OF ADHESIONS 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 OLGUIN History of bilateral ligation of fallopian tubes History of bilateral tubal ligation History of bladder surgery cyst excision History of bladder surgery Ligation of fallopian tube Open Carpal Tunnel release 10/14; RIGHT , Ectopic Repair, ACL MULTIPLE ACL REPAIRS/SCAR REPAIRS S/P abdominal hysterectomy endometriosis; oophorectomy; lysis of adhesions S/P ACL repair multiple ACL repairs/scar repairs S/P carpal tunnel release right 11/14/00 S/P cholecystectomy S/P tonsillectomy and adenoidectomy Status post abdominal hysterectomy Status post carpal tunnel release Status post cholecystectomy Status post repair of anterior cruciate ligament Status post right foot surgery hammer toe and bunion Status post tonsillectomy and adenoidectomy Tonsillectomy and adenoidectomy Tobacco Smoking/Tobacco Use Status: Former Tobacco Use Passive smoking exposure: Yes Second hand exposure: Yes Alcohol Alcohol Intake: never Substance Use Substance use: Occasionally Substance use type: marijuana Vital Signs and Lab Results Vital Signs Most Recent Vital Signs in EMR: Most Recent Vital Signs Temp Pulse Resp BP Pulse Ox 36.3 C L 61 18 168/91 H 99 07/20/23 06:15 07/20/23 06:15 07/20/23 06:15 07/20/23 06:15 07/20/23 06:15 Lab Results Blood Type / Crossmatch: No Data to Display Complete Blood Count: No Data to Display Complete Metabolic Panel: No Data to Display Liver Function Panel: No Data to Display Coagulation Panel: No Data to Display Cardiac Panel: No Data to Display Arterial Blood Gas: No Data to Display Venous Blood Gas: No Data to Display Pancreas Panel: No Data to Display Thyroid Panel: No Data to Display Infectious Disease: No Data to Display Blood Cultures: No Data to Display Toxicology Panel: No Data to Display Anesthesia Assessment and Plan Anesthesia History Personal History: No History of Anesthesia Complications Family History: No Family History of Anesthesia Complications Exercise Tolerance Exercise Tolerance: Metabolic Equivalents>4 Pertinent Negatives Pertinent Negatives: No Symptoms of GERD and No Major Cardiovascular Symptoms or Complaints Cardiac & Pulmonary Exam Cardiac Exam: Normal S1/S2 Heart Sounds Pulmonary Exam: Clear Bilateral Breath Sounds Implantable Cardiac Device Does patient have a Pacemaker or an ICD?: No Airway Exam Known Difficult Airway: No Mallampati Class: 1 Mouth Opening: Normal (> 3cm) Thyromental Distance: Less than 3 cm Neck Range of Motion: Full ROM Neck Circumference: Normal Teeth Condition: Normal Dentition ASA Classification ASA Score: ASA 3 Emergency Case?: No NPO Status NPO Status: NPO Clears >2 hours, Solids >8 hours Anesthesia Plan Resuscitation Status: Full Code Anesthesia Technique: Spinal Anesthesia Airway Planned: Natural Airway Monitors Used: Standard Monitors
[2023-07-20 07:06] VITALS: BMI 19.3
--- NOTE | 2023-07-20 08:03 | HEM_PTH ---
PATIENT: Sheryl Lacy LOC: [facility] U#:[id number] AGE/SX: 73/F ROOM: RE07/20/[address]: Diann Quiroz MD : 1950 BED: DIS: 07/20/2023 SPEC #: [id number] RECD: 07/20/23 13:09 STATUS: AARON RENasima #: [id number] DARREN: 07/20/23 08:[address]: Diann Quiroz DEPT: Surgical Specimen RECD BY: Autumn Madison ENTERED: 07/20/23 13:10 SP TYPE: Hem OTHR DR: Nelda Oscar MD, DC Tissues: 1 - HEMORRHOIDS Procedures: GROSS AND MICRO LEVEL 3 Comments: [id number]
[2023-07-20 08:29] VITALS: BP 129/88; PULSE 57; RESP 16; TEMP 36; O2SAT 97
[2023-07-20] MEDS: Bupivacaine 0.25% Pres-Free 30 ML VIAL (08:29)
[2023-07-20] MEDS: Bupivacaine LIPOSOME/PF 133 MG/10 ML VIAL IJ (08:30)
[2023-07-20 09:05] VITALS: BP 147/86; PULSE 55; RESP 18; TEMP 36.2; O2SAT 97
[2023-07-20 09:41] VITALS: BP 157/88; PULSE 52; RESP 16; TEMP 36.2; O2SAT 98
--- NOTE | 2023-07-20 10:02 | W.ANESPOSTOP ---
Postoperative Evaluation Date, Time and Location Date Performed: 07/20/23 Time Performed: 09:00 Patient Location: Day Surgery Unit Vital Signs Most Recent Imported Vital Signs: Most Recent Vital Signs Temp Pulse Resp BP Pulse Ox 36.2 C L 52 L 16 157/88 H 98 07/20/23 09:41 07/20/23 09:41 07/20/23 09:41 07/20/23 09:41 07/20/23 09:41 Pain Score Most Recent Pain Score: Most Recent Pain Score Pain Level 0 07/20/23 09:05 Assessment Mental Status: Awake (Alert & Oriented to Patient Baseline) Airway and Respiratory Function: Patent airway with normal (patient baseline) respiratory exam Cardiovascular Function: Hemodynamically Stable Hydration Status: Adequately Hydrated Nausea & Vomiting: No Nausea or Vomiting Pain: Pt. Denies Any Pain Peripheral Nerve Block: Patient did not receive a nerve block
[2023-07-20 10:15] VITALS: BP 120/69; PULSE 57; RESP 16; TEMP 36.2; O2SAT 99
[2023-07-20 11:03] VITALS: BP 173/104; PULSE 55; RESP 16; TEMP 36.3; O2SAT 98
== END 2023-07-20 12:30 | disposition home or self-care (01) ==
PROVIDERS: PCP Family Medicine; Visit Provider Surgery
PROC: (CPT 46946; 2023-07-20 07:30)
DX: K64.2 Third degree hemorrhoids (principal); K64.1 Second degree hemorrhoids; K64.4 Residual hemorrhoidal skin tags
CPT/HCPCS: 46946; 46221; 88304; J1885; J2250; J2405

== ENCOUNTER → 2023-07-29 07:56 | Outpatient (BNVA) | payer MEDICARE, SELFPAY | PROVIDERS: PCP Family Medicine; Referring Provider Family Medicine; Visit Provider Surgery | DX: Z48.815 Encounter for surgical aftercare following surgery on the digestive system (principal) ==

== ENCOUNTER → 2023-08-12 09:41 | Outpatient (BNVA) | payer MEDICARE, SELFPAY | PROVIDERS: PCP Family Medicine; Referring Provider Family Medicine; Visit Provider Surgery | DX: Z48.815 Encounter for surgical aftercare following surgery on the digestive system (principal) ==

== ENCOUNTER → 2023-11-30 01:42 | Outpatient (CLI) | payer OTHER, SELFPAY ==
--- NOTE | 2023-11-30 07:45 | DI.CTLCSR_ITS ---
Exam(s) CT CHEST LUNG CANCER SCREEN EXAM: CT CHEST LUNG CANCER SCREEN CLINICAL HISTORY: Screening for lung cancer,FORMER SMOKER, Z87.891 TECHNIQUE: Imaging Protocol: Axial computed tomography images with coronal and sagittal reformatted images were created and reviewed. Low dose screening protocol. COMPARISON: CT CT CHEST LUNG CANCER SCREEN from 11/18/2022 FINDINGS: Tracheobronchial tree: No bronchiectasis or mucus plugging.. Mediastinum and Irina: No dominant adenopathy or fluid collection. Pulmonary parenchyma: No consolidation or dominant measurable mass. Mild emphysematous changes. Lung Nodules: Stable pleural based nodules in the anterior right middle lobe. Stable 3 millimeter no dule posteromedial right lower lobe. Pleura: No effusion. No pneumothorax. Heart: The left atrium and left ventricle are moderately dilated. Mild coronary artery calcification s are seen. Aorta: Thoracic aorta non-dilated. Upper abdomen: Unremarkable. Bones: Unremarkable for age. Soft Tissues: Unremarkable. IMPRESSION: No suspicious pulmonary nodules. Lung RADS Cat 2 - Benign Appearance / Behavior: Nodules with a very low likelihood of becoming a clin ically active cancer due to size or lack of growth Lung-RADS 1.0 CATEGORIES: Category 0 - Prior chest CT exam(s) being located for comparison. Category 1 - Annual screening in 12 months. No nodules or definitely benign nodules. Category 2 - Annual screening in 12 months. Benign appearance. Nodules with low likelihood of becomin g active cancer. Category 3 - 6-month follow-up. Probably benign. Short-term follow-up suggested. Nodules with low lik elihood of becoming active cancer. Category 4A - 3-month follow-up and CT/PET if >8 mm in size. Suspicious finding. Findings which requi re additional testing. Category 4B - Findings which require additional testing and tissue sampling. Category 4X - Category 3 or 4 nodules with additional features or imaging findings that increases the suspicion of malignancy. Modifier S- Potentially clinically significant findings (non lung cancer) RADIATION DOSE DELIVERED: 74.14mGy.cm Total DLP DATA REPOSITORY: All CT scans at this facility are submitted to the National Radiology Data Registry (NRDR) Dose Index Registry (DIR) with the [employer] (ACR). RADIATION OPTIMIZATION: All CT scans at this facility use at least one of these dose optimization te chniques: automated exposure control; mA and/or kV adjustment per patient size (includes targeted exa ms where dose is matched to clinical indication); or iterative reconstruction.
== END ==
PROVIDERS: PCP Family Medicine; Visit Provider Family Medicine
DX: Z87.891 Personal history of nicotine dependence (principal); Z12.2 Encounter for screening for malignant neoplasm of respiratory organs
CPT/HCPCS: 71271

== ENCOUNTER → 2024-01-03 03:59 | Outpatient (CLI) | payer OTHER, SELFPAY ==
--- NOTE | 2024-01-03 12:30 | DI.US_ITS ---
APPROVED REPORT EXAM: Comprehensive 2D, Doppler, and color-flow Echocardiogram Patient Location: Out-Patient [facility] Supervisor: Brigitte Oneil RDCS (AE) Other Information Study Quality: Adequate Conclusion Normal ventricular chamber size and wall thickness. Ejection fraction is 48 percent. 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 Right atrial size is normal Aortic valve is sclerotic and trileaflet without stenosis or regurgitation Mildly thickened mitral leaflets with severe eccentric mitral regurgitation Normal tricuspid valve, trace regurgitation. Estimated right ventricular systolic pressure is 31 mmH g Wall motion Left Ventricle The left ventricle is normal size. Left ventricular systolic function is mildly decreased. There is n ormal left ventricular wall thickness. 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 There is no ventricular septal defect visualized. LVEF is 48%. Right Ventricle The right ventricle is normal size. The right ventricular systolic function is normal. Atria Left atrium is moderately dilated. The right atrium size is normal. The interatrial septum is intact with no evidence for an atrial septal defect. Aortic Valve The Aortic valve is sclerotic. Aortic valve is trileaflet. There is no aortic valvular stenosis. No a ortic regurgitation is present. Mitral Valve Mitral valve leaflets are mildly thickened. No evidence of mitral valve stenosis. Severe mitral regu rgitation. Mitral regurgitation jet is eccentrically directed. Tricuspid Valve The tricuspid valve is normal in structure. There is no tricuspid valve stenosis. Trace tricuspid reg urgitation. The RVSP is 31.2 mmHg. Pulmonic Valve The pulmonary valve is normal in structure. There is no pulmonic valvular stenosis. Trace to mild pul monae regurgitation. Great Vessels The aortic root is normal in size. Ascending aorta is not well visualized. Aortic arch is normal in c aliber. IVC is normal in size and collapses >50% with inspiration. Pericardium There is no pericardial effusion. 2D Dimensions IVSD d PLAX 1.00 cm F: 0.6-1.0 Ao Root d 2.20 cm F: 2.7 - 3.3 LVPW d PLAX 0.98 cm F: 0.6 - 1.0 LVID d PLAX 5.29 cm F: 3.8 - 5.2 LVDs 4.09 cm F: 2.2 - 3.5 LV EF Teichholz 45.1 % FS 22.61 % LV EDV (Teich) 134.6 mL LV ESV (Teich) 73.9 mL M-Mode TAPSE 2.60 cm (M/F) >1.7 Auto EF LV EDV A4C 140.6 mL LV EDV A2C 186.3 mL LV EDV BP 161.4 mL LV ESV A4C 69.2 mL LV ESV A2C 97.1 mL LV ESV BP 84.3 mL LVEF(%) A4C 50.8 % LVEF(%) A2C 47.9 % LVEF(%) BP 47.8 % LV SV A4C 71.5 ml LV SV A2C 89.1 ml LV SV BP 77.2 ml LV CO A4C 4.4 L/min LV CO A2C 5.4 L/min LV CO BP 4.9 L/min HR A4C 61.96 BPM HR A2C 60.31 BPM LV EDV Index (BP) LV Strain Long Pk Overal Avg (s) 14.41 LA Volume LA Length A4C 5.8 cm LA Length A2C 5.7 cm LA Area A4C s 22.09 cm2 LA Area A2C s 19.65 cm2 LA Vol A4C A-L 71.59 mL LA Vol A2C A-L 57.97 mL LA Vol Biplane A-L 65.2 mL LA Vol/BSA A4C A-L LA Vol/BSA A2C A-L LA Vol/BSA BP A-L 45.0 mL/m2 LA Vol A4C MOD 67.1 mL LA Vol A2C MOD 56.2 mL LA Vol BP MOD 61.8 mL RA Volume RA Area A4C 13.6 cm2 RA ESV A4C (A-L) 36.0mL RA Vol/BSA A4C A-L RA Length A4C 4.4 cm RA ESV A4C (MOD) 34.8mL LV Diastology MV E' medial 0.066 (>0.07 m/s) MV E Vmax 1.35 (0.4-1.3 m/s) MV E/E' MED 20.28 (<14) MV A Vmax 0.85 (0.4-1.3 m/s) MV E' lateral 0.113 (>0.1 m/s) E/A Ratio 1.6 MV E/E' LAT 11.93 (<14) MV E' Average 0.090 m/s MV E/E'(average) 15.02 Aortic Valve AoV Vmax 1.71 m/s LVOT Vmax 1.05 m/s AoV Peak Grad 11.8 mmHg LVOT Peak Grad 4.4 mmHg AoV Area (Vmax) 1.58 cm2 LVOT VTI 0.221 m AoV VTI 0.392 m LVOT Mean Grad 2.1 mmHg AoV Mean Abhijeet. 1.14 m/s LVOT SV 56.80 mL AoV Mean Grad 6.0 mmHg LVOT Diam s 1.80 cm AoV Area (VTI) 1.45 cm2 Velocity Ratio 0.61 Mitral Valve MV DT 172 (160-240 msec) MR Vmax 6.08 m/s MV Vmax TIPS 1.43 m/s MR VTI 2.098 m MV Mean Grad 2.9 (<2mmHg) MR Peak Grad 148.1 mmHg MV PHT 135 msec MR Mean Grad 95.6 mmHg MV Area PHT 1.63 cm2 MR PISA Radius 0.58 cm MV VTI 0.528 m MR Aliasing Velocity 0.36 m/s Pulmonary Valve PV Vmax 0.80 (0.5-1.5 m/s) RVOT Vmax 0.69 m/s PV Peak Grad 2.6 mmHg RVOT Peak Gr. 1.9 mmHg PV Mean Abhijeet 0.56 m/s RVOT VTI 0.191 m PV Mean Grad 1.5 mmHg RVOT Mean Gr. 1.1 mmHg Tricuspid Valve RA Pressure 3.00 mmHg TR Vmax 2.66 m/s TV S' 0.14 m/s TR Peak Grad 28.2 mmHg RVSP (TR) 31.2 mmHg
== END ==
PROVIDERS: PCP Family Medicine; Visit Provider Family Medicine
DX: I10 Essential (primary) hypertension (principal); I27.20 Pulmonary hypertension, unspecified; I34.0 Nonrheumatic mitral (valve) insufficiency
CPT/HCPCS: 93306

== ENCOUNTER 2024-02-06 09:05 | Outpatient (CLI) | payer OTHER, SELFPAY ==
--- NOTE | 2024-02-06 09:00 | RT.EKG_ITS ---
APPROVED REPORT Exam: Resting ECG Reason for Exam: HTN Patient Location: O HR:65 bpm ECG Measurements Heart Rate 65 AXIS VT 164 P 80 QRSd 121 QRS 20 QT 416 T -45 QTc 433 Conclusion Sinus rhythm...normal P axis, V-rate 50- 99 Probable left atrial enlargement...P >50mS, <-0.10mV V1 Left ventricular hypertrophy...multiple LVH criteria Nonspecific T abnormalities, inferior leads...T <-0.10mV, II III aVF Baseline wander in lead(s) V1,V2,V4,V5,V6
== END 2024-02-06 09:06 | disposition home or self-care (01) ==
LOC: DI.CARD 09:06
PROVIDERS: PCP Family Medicine; Visit Provider Internal Medicine Cardiovascular Disease
DX: I34.0 Nonrheumatic mitral (valve) insufficiency (principal); I27.20 Pulmonary hypertension, unspecified
CPT/HCPCS: 93010

== ENCOUNTER → 2024-02-06 13:44 | Outpatient (BNVA) | payer OTHER, SELFPAY | PROVIDERS: PCP Family Medicine; Referring Provider Family Medicine; Visit Provider Internal Medicine Cardiovascular Disease | DX: I10 Essential (primary) hypertension (principal); R01.1 Cardiac murmur, unspecified; I42.2 Other hypertrophic cardiomyopathy; I34.0 Nonrheumatic mitral (valve) insufficiency; I27.20 Pulmonary hypertension, unspecified | CPT/HCPCS: 93005; 99214 ==

== ENCOUNTER 2024-02-13 06:08 | Outpatient (CLI) | payer OTHER, SELFPAY ==
[2024-02-13 14:23] LABS: HCT 40.6 % (36.0-46.0); HGB 13.1 g/dL (11.2-15.7); MCH 29.2 pg (27.0-33.0); MCHC 32.3 % (32.0-36.0); MCV 90 fL (80-95); MPV 10.5 fL (8.0-11.0); Platelet Count 245 10^3/uL (130-400); RBC 4.49 10^6/uL (3.93-5.22); RDW 14.7 % (11.7-14.6); WBC 11.96 10^3/uL (4.4-10.8)
[2024-02-13 14:37] LABS: INR 1.1 (0.9-1.1); PTT Activated 26.6 sec (23.6-32.8)
[2024-02-13 15:01] LABS: Anion Gap 11.9 mmol/L (3-11); BUN 30 mg/dL (7-18); CO2 27.1 mmol/L (21.0-32.0); CREATININE 1.5 mg/dL (0.55-1.02); Calcium 9.3 mg/dL (8.5-10.1); Chloride 103 mmol/L (98-107); Estimated GFR 36.57 (mL/min/1.73m2); Glucose 99 mg/dL (74-106); Potassium 3.9 mmol/L (3.5-5.1); Sodium 142 mmol/L (136-145)
== END 2024-02-13 06:09 | disposition home or self-care (01) ==
PROVIDERS: PCP Family Medicine; Visit Provider Internal Medicine Cardiovascular Disease
DX: I34.0 Nonrheumatic mitral (valve) insufficiency (principal); R01.1 Cardiac murmur, unspecified
CPT/HCPCS: 36415; 80048; 85027; 85610; 85730

== ENCOUNTER 2024-02-23 05:26 | Outpatient (CLI) | payer OTHER, SELFPAY ==
[2024-02-23 10:27] LABS: ALT 24 U/L (14-59); AST 19 U/L (15-37); Alkaline Phosphatase 96 U/L (46-116); Anion Gap 10.7 mmol/L (3-11); BUN 24 mg/dL (7-18); Bilirubin, Total 0.4 mg/dL (0.2-1.0); CO2 29.3 mmol/L (21.0-32.0); CREATININE 1.6 mg/dL (0.55-1.02); Calcium 9.5 mg/dL (8.5-10.1); Chloride 104 mmol/L (98-107); Estimated GFR 33.84 (mL/min/1.73m2); Glucose 80 mg/dL (74-106); Potassium 3.8 mmol/L (3.5-5.1); Sodium 144 mmol/L (136-145); Total Protein 8.6 g/dL (6.4-8.2)
[2024-02-23 13:06] LABS: Lab Add On Test DONE
[2024-02-23 13:13] LABS: Lab Add On Test DONE
[2024-02-23 13:24] LABS: Anion Gap 12.4 mmol/L (3-11); BUN 23 mg/dL (7-18); CO2 27.6 mmol/L (21.0-32.0); CREATININE 1.5 mg/dL (0.55-1.02); Calcium 9.6 mg/dL (8.5-10.1); Chloride 104 mmol/L (98-107); Estimated GFR 36.57 (mL/min/1.73m2); Glucose 79 mg/dL (74-106); PHOSPHORUS 4.3 mg/dL (2.6-4.7); Potassium 3.9 mmol/L (3.5-5.1); Sodium 144 mmol/L (136-145)
[2024-02-27 14:04] LABS: Albumin 55.9 % (55.8-66.1); Albumin g/dL 4.6 g/dL (3.6-5.2); Total Protein 8.2 g/dL (6.3-8.2)
[2024-03-01 11:23] LABS: Renin Activity, Plasma <0.6 ng/mL/h
== END 2024-02-23 05:27 | disposition home or self-care (01) ==
LOC: LBO 05:26
PROVIDERS: PCP Family Medicine; Visit Provider Family Medicine
DX: I10 Essential (primary) hypertension (principal); R79.89 Other specified abnormal findings of blood chemistry; R77.9 Abnormality of plasma protein, unspecified
CPT/HCPCS: 36415; 80053; 80069; 82088; 84100; 84165; 84244

== ENCOUNTER 2024-04-14 09:01 | Emergency (ER) | payer OTHER, SELFPAY ==
[2024-04-14] VITALS (19 sets, daily range): BP systolic 112–156; BP diastolic 64–109; PULSE 84–87; RESP 12–24; TEMP 36.2; O2SAT 97–100
--- NOTE | 2024-04-14 09:15 | DI.RAD_ITS ---
Exam(s) XR CHEST 2V PA LATERAL EXAM: XR CHEST 2V PA LATERAL CLINICAL HISTORY: fever, recent cabg TECHNIQUE: 2D digital imaging was performed of the chest. Images were obtained. PA and lateral v iews were obtained. COMPARISON: CR CHEST 2 VIEWS PA,LAT from 05/04/[address] CHEST LUNG CANCER SCREEN from 11/30/2023 FINDINGS: MEDIASTINUM: Normal. HEART: There is a mitral valve replacement. Status post CABG. PULMONARY VASCULATURE: Normal. LUNGS: The lungs are hyperinflated suggesting underlying COPD. No focal consolidating infiltrates ar e present. PLEURAL SPACE: There are small bilateral pleural effusions. BONE:Within normal limits for the patient's age. OTHER FINDINGS:Normal. IMPRESSION: Development of small bilateral pleural effusions. DATA REPOSITORY: RADIATION DOSE DELIVERED:
--- NOTE | 2024-04-14 09:16 | ED.GENADUL_ITS ---
Discharge Plan Disposition Patient Disposition: Home Condition: Stable Discharge Details Clinical Impression: Fever, Difficulty in urination Primary Care Provider: Nelda Oscar ED Provider: Eriberto Souza Home Meds and New Rx's Prescriptions: New cephalexin 500 mg tablet 500 mg PO QID Qty: 28 0RF Continued triamcinolone acetonide 0.1 % cream 1 applic topical BID PRN Rx Instructions: apply to foot psyllium husk [Metamucil] 0.4 gram capsule 0.8 g PO DAILY PRN warfarin 2.5 mg tablet 2.5 mg PO DAILY Protocol: Dose Management Condition: Tuesday Dose/Route: 2.5 mg Instruction: 1 x 2.5 mg tablet Condition: Tuesday Dose/Route: 2.5 mg Instruction: 1 x 2.5 mg tablet Condition: Tuesday Dose/Route: 5 mg Instruction: 2 x 2.5 mg tablets Condition: Tuesday Dose/Route: 2.5 mg Instruction: 1 x 2.5 mg tablet Condition: Dose/Route: 2.5 mg Instruction: 1 x 2.5 mg tablet Condition: Tuesday Dose/Route: 2.5 mg Instruction: 1 x 2.5 mg tablet Condition: Tuesday Dose/Route: 2.5 mg Instruction: 1 x 2.5 mg tablet Protocol Text: Adjustment Start Date: 04/12/24 INR Value: 1.5 INR Date: 04/12/24 Recheck Date: 04/19/24 acetaminophen 325 mg capsule 975 mg PO ONCE PRN Rx Instructions: per [facility] 04/08/24. -hb amoxicillin 500 mg capsule 2,000 mg PO ONCE Rx Instructions: Take 4 capsules PO ONCE, prior to any dental procedure. per [facility] 04/08/24. -hb aspirin [Adult Aspirin Regimen] 81 mg tablet,delayed release (DR/EC) 81 mg PO DAILY Rx Instructions: per [facility] 04/08/24. -hb atorvastatin 20 mg tablet 20 mg PO DAILY Rx Instructions: per [facility] 04/08/24. -hb metoprolol tartrate 50 mg tablet 50 mg PO BID Rx Instructions: per [facility] 04/08/24. -hb polyethylene glycol 3350 [Miralax] 17 gram/dose powder 17 g PO DAILY Qty: 238 0RF Rx Instructions: Hold if you have diarrhea Discharge Instructions Additional Instructions: Follow-up with your primary care provider within 1 to 2 weeks especially if not improving If you feel more ill, have severe abdominal pain or persistent vomiting return to the emergency department for reevaluation HPI General Date/Time Provider Initiated Documentation: 04/14/24 09:03 . Limitations to Documentation: no limitations . Information obtained by: patient . History of Present Illness 73 year old F presents to the emergency department with the chief complaint of difficulty urinating, described as mild, Patient started experiencing this day(s) (2) and it has been constant. No relieving factors improve symptom(s), No exac erbating factors reported . Patient notes fever/chills; denies chest pain, cough and shortness of breath. Patient did receive the following treatments prior to arrival, none Related Data Home Medications Medication Instructions Recorded Confirmed polyethylene glycol 3350 17 17 g PO DAILY #238 grams 07/20/23 04/14/24 gram/dose oral powder (Miralax) psyllium husk 0.4 gram capsule 0.8 g PO DAILY PRN 01/24/24 04/14/24 (Metamucil) triamcinolone acetonide 0.1 % 1 applic topical BID PRN 01/24/24 04/14/24 topical cream acetaminophen 325 mg capsule 975 mg PO ONCE PRN 04/10/24 04/14/24 amoxicillin 500 mg capsule 2,000 mg PO ONCE 04/10/24 04/14/24 aspirin 81 mg tablet,delayed 81 mg PO DAILY 04/10/24 04/14/24 release (Adult Aspirin Regimen) atorvastatin 20 mg tablet 20 mg PO DAILY 04/10/24 04/14/24 metoprolol tartrate 50 mg tablet 50 mg PO BID 04/10/24 04/14/24 warfarin 2.5 mg tablet 2.5 mg PO DAILY 04/10/24 04/14/24 cephalexin 500 mg tablet 500 mg PO QID #28 tabs 04/14/24 Previous Rx's Medication Instructions Recorded polyethylene glycol 3350 17 17 g PO DAILY #238 grams 07/20/23 gram/dose oral powder (Miralax) cephalexin 500 mg tablet 500 mg PO QID #28 tabs 04/14/24 Allergies Allergy/AdvReac Type Severity Reaction Status Date / Time nitrofurantoin Allergy Severe FELT LIKE Verified 04/14/24 09:08 AIRWAY WAS CLOSING UP General Stated Complaint: Urinary YEYO: 3 Review of Systems All systems reviewed & are unremarkable except as noted in HPI and below Constitutional Constitutional: Reports chills, Reports fever(s) and Denies weakness Cardiovascular Cardiovascular: Denies chest pain and Denies dyspnea Respiratory Respiratory: Denies cough and Denies dyspnea Gastrointestinal Gastrointestinal: Denies abdominal pain, Denies nausea and Denies vomiting Genitourinary Genitourinary: Reports urinary frequency Musculoskeletal Musculoskeletal: Denies joint swelling Neurologic Neurologic: Denies weakness Exam Const General: no acute distress Orientation: alert HENMT Head: normal to inspection Ears: external ears normal General nose exam: external nose normal Mouth: moist mucous membranes Eyes General: appearance normal, both eyes and all related structures Neck Neck: normal visual inspection Chest Chest: no crepitus Resp Effort & Inspection: normal respiratory effort and able to speak in complete sentences Auscultation: clear to auscultation bilaterally Cardio Jugular venous pressure: no JVD Rate: regular rate Heart Sounds: no murmurs GI Palpation: soft and nontender Skin General skin exam: no rashes or lesions noted Neuro General: patient alert and patient oriented x3 Extrem General: normal to inspection Psych Mental Status: mental status grossly normal Course Vital Signs Vital signs: Vital Signs Temperature 36.2 C L 04/14/24 09:04 Pulse 86 04/14/24 09:04 Respiratory Rate 21 04/14/24 09:04 Blood Pressure 156/109 H 04/14/24 09:04 Pulse Oximetry 99 04/14/24 09:04 Temperature 36.2 C L 04/14/24 09:07 Temperature Source Temporal Artery Scan 04/14/24 09:07 Pulse 86 04/14/24 09:04 Respiratory Rate 21 04/14/24 09:04 Respiratory Effort Normal 04/14/24 09:07 Blood Pressure 156/109 H 04/14/24 09:04 Blood Pressure Position Sitting 04/14/24 09:07 Pulse Oximetry 99 04/14/24 09:04 Oxygen Delivery Method Room Air 04/14/24 09:07 Oxygen Flow Rate 0 04/14/24 09:07 Pain Level 0 04/14/24 09:07 Lab/Test Results Lab/Test Results: 04/14/24 09:14 Blood Blood Culture - Pending 04/14/24 09:14 Blood Blood Culture - Pending Medical Decision Making 73-year-old female who underwent CABG 10 days ago and states it was uncomplicated and has been home for about a week comes in with complaints of fever and difficulty urinating. She denies any chest pain, cough, difficulty breathing, no increased pain at the incision site and no drainage or erythema. She has no abdominal pain, no headache, no neck pain or stiffness. She is alert and appears well speaking in full sentences. Incision peers to be healing well with no signs of infection, no crepitus, clear lungs, soft nontender abdomen. She says the temperature she noted that was the highest was yesterday at 100.6. Suspect possible urinary source for her infection given her symptoms, will check a CBC, CMP, lactate and procalcitonin, will also obtain a chest x-ray given her recent CABG to evaluate for possible infiltrate though seems unlikely given no respiratory symptoms. Will also obtain a UA. Labs show white count of 17, reviewed documents labs and she also had a white count of 17 last week. Reassuring procalcitonin, lactate less than 4, UA does have some bacteria, culture ordered. Discussed results with patient, she is actually no abdominal tenderness so do not feel imaging acutely indicated. Will initiate treatment for possible UTI, she is on warfarin so we will refrain from using levofloxacin or ciprofloxacin, will start her on cephalexin. She is stable for discharge, advised to follow-up with her PCP and return precautions given Differential Diagnosis Differential Diagnosis: UTI, pneumonia, Medical Records Medical records reviewed: Yes I reviewed the patient's medical records. Imaging Data Radiologic Study: Attestation: I personally reviewed and interpreted this imaging study as follows: Imaging: X-Ray Radiologist's impression: IMPRESSION: Development of small bilateral pleural effusions. Lab Data Lab results reviewed: Yes I reviewed the patient's lab results. Quality:[facility] Health Related Social Needs: No Data to Display PFSH All Active Problems (Updated 04/14/24 @ 10:45 by Eriberto Souza MD) Difficulty in urination (Acute) Fever (Acute) Chronic anticoagulation (Acute) 04/10/24 per [facility]. -hb Coronary artery disease (Chronic) Elevated serum protein level (Acute) Elevated serum creatinine (Acute) Hemorrhoids (Acute ~07/2023) Hemorrhoid prolapse (Acute) Abnormal thyroid blood test (Acute) Pulmonary hypertension (Acute) Severe mitral regurgitation (Acute) Murmur, cardiac (Acute) Abdominal pain (Acute) Tubular adenoma of colon (Acute ~11/27/18) Chronic interstitial cystitis (Acute) Hypertension (Chronic) Hiatal hernia (Chronic 11/11/16) 3 cm EGD 10/29 Esophagitis, erosive (Chronic 10/25/16) (REFLUX)-10/25/16 Cervical spondylolysis (Chronic) CHRONIC NECK PAIN; 08/17 MRI: DJD, C5-6 MILD SPINA; STENOSIS 2007 MRI showing possible anterior cord impingement; F/U [facility] Medical History (Updated 04/14/24 @ 10:45 by Eriberto Souza MD) Thoracic back pain Mucous cyst of finger Abdominal pain (10/24/12) Cataract (11/29/17) Endometriosis Hematuria History of ectopic Impaired fasting glucose Knee pain Tobacco use disorder Hallux valgus (acquired), right foot Impaired fasting glucose Elevated fasting glucose, normal f/u Hx of ectopic s/p oophorectomy Interstitial cystitis bladder s/p cyst excision; Tobacco use disorder quit 11/17 Endometriosis s/p hysterectomy Knee pain s/p ACL repair and scar revision Hematuria 03/16 IVP NEG; Dr. Landeros--Urologist Abdominal pain 10/24/12 Cataract 11/29/17 unspecified Diverticulosis Colon polyps 01/18 colonoscopy; hyperplastic polyp, sigmoid Family history of colon cancer Sigmoid diverticulum Post-menopausal atrophic vaginitis (12/14/11) Other specified diseases of gallbladder BILIARY DYSKINESIA Osteopenia 10/19 DEXA: -2.1/-2.4/-2.1 Irritable colon Injury of head 09/15 DISABILITY Hyperlipidemia pt. states she is not sure if she has this or not. Frequent urination at night (05/29/18) pt. 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 -hb H/O mitral valve repair 04/09/24 at [facility]. -hb Hx of hemorrhoidectomy (~07/20/23) Status post right foot surgery hammer toe and bunion History of bilateral ligation of fallopian tubes History of bladder surgery Status post abdominal hysterectomy Status post carpal tunnel release Status post cholecystectomy Status post repair of anterior cruciate ligament Status post tonsillectomy and adenoidectomy S/P tonsillectomy and adenoidectomy History of bilateral tubal ligation S/P abdominal hysterectomy endometriosis; oophorectomy; lysis of adhesions History of bladder surgery cyst excision S/P cholecystectomy S/P ACL repair multiple ACL repairs/scar repairs S/P carpal tunnel release right 11/14/00 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 OLGUIN Bladder Surgery CYST EXCISION Family History (Updated 02/08/24 @ 14:01 by Joie Baig) Mother , AGE 72 Howard's disease Myocardial infarction Neoplasm COLON Colon cancer Heart disease Hypertension Father , AGE 70 CAD (coronary artery disease) Myocardial infarction Stroke Alcohol abuse Heart disease Hypertension Sister Heart disease Bushra's disease Hyperlipidemia Asthma Melanoma Diabetes Brother Diabetes Heart disease Howard's disease Hyperlipidemia Sister Diabetes Hyperlipidemia Asthma Maternal Grandfather No problems noted. Paternal Grandfather No problems noted. Maternal Grandmother Dementia Paternal Grandmother No problems noted. Other Family history of Bushra's chorea Social History (Updated 02/08/24 @ 14:05 by Joie Baig) Smoking/Tobacco Use Status: Former Tobacco Use tobacco type: cigarettes Quit Date: 11/14/13 Tobacco: How many years used: 27 Second Hand Exposure: No Smoking risk assessment performed?: Yes Alcohol Intake: never Drug use: Socially Substance use type: marijuana Adopted: No Caregiver/Support person: No Household members: spouse Housing: house Number of Children: 2 number of grandchildren: 2 Communication Needs: Corrective Lenses Education Level: college Details: graduated HS, some college Do you need help understanding health information?: Rarely current occupation: retired Pets and animals: Yes Pets and animals: dog(s) Sexually active: No Do you think of yourself as: straight/heterosexual Current gender identity: female What is your relationship status?: How often do you talk on the phone with friends or family?: once per week How often do you get together with friends or relatives?: decline to answer How often do you attend congregational or worship services?: decline to answer Do you belong to any clubs or organized social groups?: decline to answer Panel score (0-1 are the most socially isolated patients): 1 What type of physical activity do you participate in: walking Duration: 30-45 minutes/day Frequency: daily Adelina/Moravian: Sabianist Special adelina needs: No Seatbelt use: always Drive 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
[2024-04-14 09:45] LABS: Abs Immature Grans 0.16 10^3/uL (0.0-0.06); HCT 29.8 % (36.0-46.0); HGB 9.7 g/dL (11.2-15.7); MCH 29.6 pg (27.0-33.0); MCHC 32.6 % (32.0-36.0); MCV 91 fL (80-95); MPV 9.5 fL (8.0-11.0); Platelet Count 483 10^3/uL (130-400); RBC 3.28 10^6/uL (3.93-5.22); RDW 15.2 % (11.7-14.6); RDW-SD 50.3 fL; WBC 17.64 10^3/uL (4.4-10.8)
[2024-04-14 09:58] LABS: ALT 56 U/L (14-59); AST 59 U/L (15-37); Albumin 2.7 g/dL (3.4-5.0); Alkaline Phosphatase 91 U/L (46-116); Anion Gap 8.8 mmol/L (3-11); BUN 18 mg/dL (7-18); Bilirubin, Total 0.6 mg/dL (0.2-1.0); CO2 24.2 mmol/L (21.0-32.0); Calcium 8.7 mg/dL (8.5-10.1); Chloride 102 mmol/L (98-107); Estimated GFR 59.49 (mL/min/1.73m2); Glucose 104 mg/dL (74-106); Magnesium 1.9 mg/dL (1.8-2.4); Potassium 3.6 mmol/L (3.5-5.1); Sodium 135 mmol/L (136-145)
[2024-04-14 10:00] LABS: Absolute Lymphocyte Count 2.82 10^3/uL (1.2-3.4); Absolute Neutrophil Count 13.05 10^3/uL (1.2-6.7)
[2024-04-14 10:01] LABS: Absolute Eosinophil Count 0.18 10^3/uL (0.0-0.7); Absolute Monocyte Count 1.59 10^3/uL (0.1-0.8); Diff Comment Manual Differential; RBC Morphology Normal
[2024-04-14 10:05] LABS: Bilirubin Negative (Negative); Blood Moderate (Negative); Clarity Clear (Clear); Glucose Negative (Negative); Ketones Negative (Negative); Leukocyte Esterase Negative (Negative); Nitrite Negative (Negative); Specific Gravity 1.025 (1.005-1.025); Urobilinogen 0.2 mg/dL (Up to 0.2); pH 5.5 (5-8)
[2024-04-14 10:18] LABS: Bacteria Few HPF (Negative); C & S Indicated? C&S Done As Ordered; Casts Negative LPF (Negative); Crystals Negative HPF (Negative); Epithelial Cells Few HPF (Negative); Mucus Trace (Negative); RBC 0-2 HPF (0-2); WBC 0-2 HPF (0-5)
[2024-04-14 10:22] LABS: Procalcitonin < 0.1 ng/mL
[2024-04-14] MEDS: Cephalexin 500 MG CAP PO (10:57)
--- NOTE | 2024-04-16 08:53 | NUR.NOTE ---
Accessed chart to look up whether or not on antibiotic for culture result. Nursing Note:
== END 2024-04-14 10:58 | disposition home or self-care (01) ==
PROVIDERS: Emergency Provider Emergency Medicine; PCP Family Medicine
DX: R39.198 Other difficulties with micturition (principal); R50.9 Fever, unspecified; Z98.61 Coronary angioplasty status
CPT/HCPCS: 36415; 80053; 84145; 87040; 99283; 71046; 81003; 81015; 83605; 83735; 85025; 87086

== ENCOUNTER 2024-05-09 01:39 | Outpatient (CLI) | payer OTHER, SELFPAY ==
[2024-05-09 12:30] LABS: INR 1.5 (0.9-1.1); Prothrombin Time 14.3 sec (9.1-11.1)
== END 2024-05-09 01:40 | disposition home or self-care (01) ==
LOC: LOS 01:39
PROVIDERS: PCP Family Medicine; Visit Provider Family Medicine
DX: Z98.890 Other specified postprocedural states (principal); I25.810 Atherosclerosis of coronary artery bypass graft(s) without angina pectoris
CPT/HCPCS: 36415; 85610

== ENCOUNTER 2024-05-11 10:00 | Outpatient (RCR) | payer OTHER, SELFPAY | END 2024-05-13 23:59 | disposition home or self-care (01) | LOC: CR 10:00 | PROVIDERS: PCP Family Medicine; Visit Provider Internal Medicine Cardiovascular Disease | DX: I25.810 Atherosclerosis of coronary artery bypass graft(s) without angina pectoris (principal) | CPT/HCPCS: S9472 ==

== ENCOUNTER 2024-05-16 02:25 | Outpatient (CLI) | payer OTHER, SELFPAY ==
[2024-05-16 13:04] LABS: ALT 25 U/L (14-59); AST 46 U/L (15-37); Albumin 3.1 g/dL (3.4-5.0); Alkaline Phosphatase 105 U/L (46-116); Anion Gap 8.6 mmol/L (3-11); BUN 29 mg/dL (7-18); Bilirubin, Total 0.62 mg/dL (0.2-1.0); CO2 26.4 mmol/L (21.0-32.0); CREATININE 1.4 mg/dL (0.55-1.02); Calcium 8.8 mg/dL (8.5-10.1); Calculated LDL 41 mg/dL (<100); Chloride 107 mmol/L (98-107); Cholesterol 129 mg/dL (<200); Estimated GFR 39.48 (mL/min/1.73m2); Glucose 93 mg/dL (74-106); HDL Cholesterol 58 mg/dL (40-60); Potassium 4.5 mmol/L (3.5-5.1); Sodium 142 mmol/L (136-145); Total Protein 7.4 g/dL (6.4-8.2); Triglyceride 154 mg/dL (<150)
== END 2024-05-16 02:26 | disposition home or self-care (01) ==
LOC: LOS 02:26
PROVIDERS: PCP Family Medicine; Visit Provider Family Medicine
DX: I10 Essential (primary) hypertension (principal)
CPT/HCPCS: 36415; 80053; 80061

== ENCOUNTER 2024-05-18 02:51 | Outpatient (CLI) | payer OTHER, SELFPAY ==
[2024-05-18 13:22] LABS: INR 1.5 (0.9-1.1); Prothrombin Time 14.2 sec (9.1-11.1)
== END 2024-05-18 02:52 | disposition home or self-care (01) ==
LOC: LOS 02:51
PROVIDERS: PCP Family Medicine; Visit Provider Family Medicine
DX: Z98.890 Other specified postprocedural states (principal)
CPT/HCPCS: 85610

== ENCOUNTER 2024-05-21 10:22 | Outpatient (RCR) | payer OTHER, SELFPAY | END 2024-06-13 23:59 | disposition home or self-care (01) | LOC: CR 10:22 | PROVIDERS: PCP Family Medicine; Visit Provider Internal Medicine Cardiovascular Disease | DX: I25.810 Atherosclerosis of coronary artery bypass graft(s) without angina pectoris (principal); Z95.5 Presence of coronary angioplasty implant and graft | CPT/HCPCS: S9472 ==

== ENCOUNTER 2024-05-29 10:49 | Observation (INO) | payer OTHER, SELFPAY ==
[2024-05-29] VITALS (22 sets, daily range): BP systolic 127–186; BP diastolic 76–117; PULSE 74–90; RESP 12–29; TEMP 36.1–37.1; O2SAT 95–100
--- NOTE | 2024-05-29 10:45 | RT.EKG_ITS ---
APPROVED REPORT Exam: Resting ECG Reason for Exam: sob Patient Location: E HR:90 bpm ECG Measurements Heart Rate 90 AXIS ND 184 P 64 QRSd 101 QRS 27 QT 400 T -30 QTc 489 Conclusion Sinus rhythm 90 normal axis no stemi
--- NOTE | 2024-05-29 11:15 | DI.RAD_ITS ---
Exam(s) XR PORTABLE CHEST AP EXAM: XR PORTABLE CHEST AP CLINICAL HISTORY: chest pain. TECHNIQUE: 2D digital imaging was performed. COMPARISON: CR XR CHEST 2V PA LATERAL from 04/14/2024 FINDINGS: Single AP portable view. Again noted are sternotomy wires, evidence of previous CABG, and a prosthetic mitral valve again note d. Heart size is upper normal. The mediastinum is not widened. There is some platelike atelectasis in the right lung base. Also blunting of both costophrenic angle s again noted, consistent with small bilateral pleural effusions. There is no airspace pulmonary isabel ma. No pneumothorax. No fractures.. IMPRESSION: Persistent small bilateral pleural effusions, similar to 04/14/2024. Sternotomy. CABG. Prosthetic mitral valve. DATA REPOSITORY: RADIATION DOSE DELIVERED:
[2024-05-29 11:28] LABS: Abs Immature Grans 0.04 10^3/uL (0.0-0.06); Absolute Basophil Count 0.15 10^3/uL (0.0-0.2); Absolute Eosinophil Count 0.68 10^3/uL (0.0-0.7); Absolute Lymphocyte Count 2.67 10^3/uL (1.2-3.4); Basophils % 1.4 %; Eosinophils % 6.2 %; HCT 32.7 % (36.0-46.0); HGB 10.2 g/dL (11.2-15.7); Immature Grans % 0.4 %; Lymphocytes % 24.4 %; MCH 29.3 pg (27.0-33.0); MCHC 31.2 % (32.0-36.0); MCV 94 fL (80-95); MPV 10.4 fL (8.0-11.0); Neutrophils % 59.6 %; Platelet Count 295 10^3/uL (130-400); RBC 3.48 10^6/uL (3.93-5.22); RDW 18.3 % (11.7-14.6); RDW-SD 62.6 fL; WBC 10.94 10^3/uL (4.4-10.8)
[2024-05-29 11:29] LABS: Absolute Monocyte Count 0.88 10^3/uL (0.1-0.8); Absolute Neutrophil Count 6.52 10^3/uL (1.2-6.7)
[2024-05-29 11:45] LABS: INR 1.8 (0.9-1.1); PTT Activated 30.4 sec (23.6-32.8); Prothrombin Time 16.9 sec (9.1-11.1)
[2024-05-29 11:47] LABS: ALT 43 U/L (14-59); AST 54 U/L (15-37); Albumin 3.5 g/dL (3.4-5.0); Alkaline Phosphatase 130 U/L (46-116); Anion Gap 11.3 mmol/L (3-11); BUN 26 mg/dL (7-18); CO2 24.7 mmol/L (21.0-32.0); CREATININE 1.5 mg/dL (0.55-1.02); Calcium 9.3 mg/dL (8.5-10.1); Chloride 105 mmol/L (98-107); Estimated GFR 36.34 (mL/min/1.73m2); Glucose 98 mg/dL (74-106); Potassium 4.2 mmol/L (3.5-5.1); Sodium 141 mmol/L (136-145); Total Protein 8.1 g/dL (6.4-8.2); Troponin I < 50 ng/L (< or =60)
[2024-05-29] MEDS: Furosemide 100 MG/10 ML VIAL 80 MG IVP (11:54)
[2024-05-29 12:11] LABS: NT-proBNP 11080 pg/mL (<300)
--- NOTE | 2024-05-29 13:09 | ED.GENADUL_ITS ---
Discharge Plan Discharge Details Chief Complaint: Dizzy/Sync Reason For Visit: sent by RYAN/DARIUS Admit Date/Time: 05/29/24 14:17 Primary Care Provider: Nelda Oscar ED Provider: Bill Pulliam Home Meds and New Rx's Prescriptions: No Action psyllium husk [Metamucil] 0.4 gram capsule 0.8 g PO DAILY PRN warfarin 2.5 mg tablet 2.5 mg PO DAILY Protocol: Dose Management Condition: Tuesday Dose/Route: 2.5 mg Instruction: 1 x 2.5 mg tablet Condition: Tuesday Dose/Route: 2.5 mg Instruction: 1 x 2.5 mg tablet Condition: Tuesday Dose/Route: 5 mg Instruction: 2 x 2.5 mg tablets Condition: Tuesday Dose/Route: 2.5 mg Instruction: 1 x 2.5 mg tablet Condition: Dose/Route: 2.5 mg Instruction: 1 x 2.5 mg tablet Condition: Tuesday Dose/Route: 2.5 mg Instruction: 1 x 2.5 mg tablet Condition: Tuesday Dose/Route: 2.5 mg Instruction: 1 x 2.5 mg tablet Protocol Text: Adjustment Start Date: Tuesday05/18/24 INR Value: 1.5 INR Date: 05/18/24 Recheck Date: 06/01/24 acetaminophen 325 mg capsule 975 mg PO ONCE PRN Rx Instructions: per [facility] Cardiology 04/08/24. -hb amoxicillin 500 mg capsule 2,000 mg PO ONCE Rx Instructions: Take 4 capsules PO ONCE, prior to any dental procedure. per [facility] Cardiology 04/08/24. -hb aspirin [Adult Aspirin Regimen] 81 mg tablet,delayed release (DR/EC) 81 mg PO DAILY Rx Instructions: per [facility] Cardiology 04/08/24. -hb atorvastatin 20 mg tablet 20 mg PO DAILY Rx Instructions: per [facility] Cardiology 04/08/24. -hb metoprolol tartrate 50 mg tablet 50 mg PO BID Rx Instructions: per [facility] Cardiology 04/08/24. -hb HPI General Date/Time Provider Initiated Documentation: 05/29/24 10:51 . Limitations to Documentation: no limitations . Information obtained by: patient . HPI Narrative: 74-year-old female with past medical history of CAD, pulmonary hypertension, recent CABG and mitral valve replacement in March presents for evaluation of shortness of breath. She reports that over the last week her shortness of breath has significantly worsened. She is no longer able to participate in cardiac rehab because she is so short of breath. Any exertion causes shortness of breath. She has no chest pain with this. She is unable to lay flat and frequently wakes up during the night because of the shortness of breath. She is no longer sleeping in her bed because of this. She had a follow-up in early May with her regional planner and things are going well. She has been compliant w ith her medications including her Coumadin. She does report approximately a 10 pound weight gain and is noted that her bilateral legs are swollen. Related Data Home Medications ?Medication ?Instructions ?Recorded ?Confirmed psyllium husk 0.4 gram capsule 0.8 g PO DAILY PRN 01/24/24 05/29/24 (Metamucil) acetaminophen 325 mg capsule 975 mg PO ONCE PRN 04/10/24 05/29/24 amoxicillin 500 mg capsule 2,000 mg PO ONCE 04/10/24 05/29/24 aspirin 81 mg tablet,delayed 81 mg PO DAILY 04/10/24 05/29/24 release (Adult Aspirin Regimen) atorvastatin 20 mg tablet 20 mg PO DAILY 04/10/24 05/29/24 metoprolol tartrate 50 mg tablet 50 mg PO BID 04/10/24 05/29/24 warfarin 2.5 mg tablet 2.5 mg PO DAILY 04/10/24 05/29/24 Allergies Allergy/AdvReac Type Severity Reaction Status Date / Time nitrofurantoin Allergy Severe FELT LIKE Verified 05/29/24 11:02 AIRWAY WAS CLOSING UP General Stated Complaint: Dizzy/Sync YEYO: 3 Exam Narrative Exam Narrative: Review of Systems: All systems reviewed & are unremarkable except as noted in HPI and below Well-developed, no acute distress NCAT PERRL, normal conjunctiva RRR + systolic murmur Unlabored respiratory effort, mild tachypnea, no hypoxia, crackles at the bases Nondistended abdomen Extremities w/o deformity, no cyanosis,1 +1 bilateral lower extremity edema no focal neurologic deficits Appropriate mood and affect Course Vital Signs Vital signs: Vital Signs Temperature 36.1 C L 05/29/24 10:55 Pulse 90 05/29/24 10:55 Respiratory Rate 26 H 05/29/24 10:55 Blood Pressure 186/111 H 05/29/24 10:55 Pulse Oximetry 100 05/29/24 10:55 Temperature 36.1 C L 05/29/24 10:55 Temperature Source Tympanic 05/29/24 10:55 Pulse 90 05/29/24 12:19 Pulse 87 05/29/24 12:19 Respiratory Rate 19 05/29/24 12:19 Respiratory Effort Normal, Non-Labored, Short of Breath 05/29/24 11:24 Respiratory Depth Normal 05/29/24 11:24 Respiratory Pattern Normal 05/29/24 11:24 Blood Pressure 181/106 H 05/29/24 12:19 Blood Pressure Mean 128 05/29/24 12:19 Blood Pressure Position Sitting 05/29/24 10:55 Pulse Oximetry 05/29/24 12:19 Oxygen Delivery Method Room Air 05/29/24 10:55 Oxygen Flow Rate 0 05/29/24 10:55 Pain Level 0 05/29/24 10:55 Lab/Test Results Lab/Test Results: Laboratory Tests Range/Units 05/29/24 11:21 WBC (4.4-10.8) 10^3/uL 10.94 H RBC (3.93-5.22) 10^6/uL 3.48 L Hgb (11.2-15.7) g/dL 10.2 L Hct (36.0-46.0) % 32.7 L MCV (80-95) fL 94 MCH (27.0-33.0) pg 29.3 MCHC (32.0-36.0) % 31.2 L RDW (11.7-14.6) % 18.3 H Plt Count (130-400) 10^3/uL 295 MPV (8.0-11.0) fL 10.4 Immature Gran % % 0.4 Neutrophils % % 59.6 Lymphocytes % % 24.4 Monocytes % % 8.0 Eosinophils % % 6.2 Basophils % % 1.4 Nucleated RBC % (0.0-0.3) % 0.0 Absolute Neutrophils (1.2-6.7) 10^3/uL 6.52 Absolute Lymphocytes (1.2-3.4) 10^3/uL 2.67 Absolute Monocytes (0.1-0.8) 10^3/uL 0.88 H Absolute Eosinophils (0.0-0.7) 10^3/uL 0.68 Absolute Basophils (0.0-0.2) 10^3/uL 0.15 PT (9.1-11.1) sec 16.9 H INR (0.9-1.1) 1.8 H APTT (23.6-32.8) sec 30.4 Sodium (136-145) mmol/L 141 Potassium (3.5-5.1) mmol/L 4.2 Chloride (98-107) mmol/L 105 Carbon Dioxide (21.0-32.0) mmol/L 24.7 Anion Gap (3-11) mmol/L 11.3 H BUN (7-18) mg/dL 26 H Creatinine (0.55-1.02) mg/dL 1.5 H Est GFR (CKD-EPI 2020) (mL/min/1.73m2) 36.34 Glucose (74-106) mg/dL 98 Calcium (8.5-10.1) mg/dL 9.3 Total Bilirubin (0.2-1.0) mg/dL 1.20 H AST (15-37) U/L 54 H ALT (14-59) U/L 43 Alkaline Phosphatase (46-116) U/L 130 H Troponin I (< or =60) ng/L < 50 NT-Pro-B Natriuret Pep (<300) pg/mL 67473 H Total Protein (6.4-8.2) g/dL 8.1 Albumin (3.4-5.0) g/dL 3.5 Medical Decision Making Emergent evaluation shortness of breath. Initial differential includes unstable angina, CHF, volume overload. I reviewed her medical record discharge summary from [facility]. In addition to her most recent CT surgery appointment on May 15. It seems that she was doing well. She is gained several pounds since her initial admission and does have symptoms and signs concerning for volume overload. She is not hypoxic or requiring any respiratory distress Lab work was obtained, mild leukocytosis. Anemia improved INR slightly low therapeutic levels. Renal function at baseline. BNP significantly elevated over 11,000. Troponin is not elevated. Chest x-ray does demonstrate bilateral pleural effusions. Given this constellation of symptoms, IV Lasix was initiated. Patient does not normally take a diuretic at home. I will discuss with her cardiac surgeon as she is only 2 months postop. 1310 . Transfer center called and reports that cardiac surgeon would like an echocardiogram Patient is stable and is diuresing appropriately. Will continue diuresis admitted to the hospital for this. Will try to get INR into therapeutic range and get the echocardiogram as requested by the cardiac surgeons. Discussed with the hospitalist here who will admit the patient to their service for further management and continued discussion and treatment plan with cardiac surgery at [facility] as needed. Medical Records Medical records reviewed: Yes I reviewed the patient's medical records. Lab Data Lab results reviewed: Yes I reviewed the patient's lab results. Quality:[facility] Health Related Social Needs: No Data to Display PFSH All Active Problems (Updated 05/29/24 @ 14:52 by Matt Donis MD) CHF exacerbation (Acute) Chronic anticoagulation (Acute) 04/10/24 per [facility]. -hb Coronary artery disease (Chronic) Elevated serum protein level (Acute) Elevated serum creatinine (Acute) Hemorrhoids (Acute ~07/2023) Hemorrhoid prolapse (Acute) Abnormal thyroid blood test (Acute) Pulmonary hypertension (Acute) Severe mitral regurgitation (Acute) Murmur, cardiac (Acute) Abdominal pain (Acute) Tubular adenoma of colon (Acute ~11/27/18) Chronic interstitial cystitis (Acute) Hypertension (Chronic) Hiatal hernia (Chronic 11/11/16) 3 cm EGD 10/29 Esophagitis, erosive (Chronic 10/25/16) (REFLUX)-10/25/16 Cervical spondylolysis (Chronic) CHRONIC NECK PAIN; 08/17 MRI: DJD, C5-6 MILD SPINA; STENOSIS 2007 MRI showing possible anterior cord impingement; F/U [facility] Medical History (Updated 05/29/24 @ 14:52 by Matt Donis MD) Thoracic back pain Mucous cyst of finger Abdominal pain (10/24/12) Cataract (11/29/17) Endometriosis Hematuria History of ectopic Impaired fasting glucose Knee pain Tobacco use disorder Hallux valgus (acquired), right foot Impaired fasting glucose Elevated fasting glucose, normal f/u Hx of ectopic s/p oophorectomy Interstitial cystitis bladder s/p cyst excision; Tobacco use disorder quit 11/17 Endometriosis s/p hysterectomy Knee pain s/p ACL repair and scar revision Hematuria 03/16 IVP NEG; Dr. Landeros--Urologist Abdominal pain 10/24/12 Cataract 11/29/17 unspecified Diverticulosis Colon polyps 01/18 colonoscopy; hyperplastic polyp, sigmoid Family history of colon cancer Sigmoid diverticulum Post-menopausal atrophic vaginitis (12/14/11) Other specified diseases of gallbladder BILIARY DYSKINESIA Osteopenia 10/19 DEXA: -2.1/-2.4/-2.1 Irritable colon Injury of head 09/15 DISABILITY Hyperlipidemia pt. states she is not sure if she has this or not. Frequent urination at night (05/29/18) pt. 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 -hb S/P CABG x 2 04/09/2024. -hb Hx of hemorrhoidectomy (~07/20/23) Status post right foot surgery hammer toe and bunion History of bilateral ligation of fallopian tubes History of bladder surgery Status post abdominal hysterectomy Status post carpal tunnel release Status post cholecystectomy Status post repair of anterior cruciate ligament Status post tonsillectomy and adenoidectomy S/P tonsillectomy and adenoidectomy History of bilateral tubal ligation S/P abdominal hysterectomy endometriosis; oophorectomy; lysis of adhesions History of bladder surgery cyst excision S/P cholecystectomy S/P ACL repair multiple ACL repairs/scar repairs S/P carpal tunnel release right 11/14/00 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 OLGUIN Bladder Surgery CYST EXCISION Family History (Updated 02/08/24 @ 14:01 by Joie Baig) Mother , AGE 72 Bushra's disease Myocardial infarction Neoplasm COLON Colon cancer Heart disease Hypertension Father , AGE 70 CAD (coronary artery disease) Myocardial infarction Stroke Alcohol abuse Heart disease Hypertension Sister Heart disease Jakin's disease Hyperlipidemia Asthma Melanoma Diabetes Brother Diabetes Heart disease Bushra's disease Hyperlipidemia Sister Diabetes Hyperlipidemia Asthma Maternal Grandfather No problems noted. Paternal Grandfather No problems noted. Maternal Grandmother Dementia Paternal Grandmother No problems noted. Other Family history of Bushra's chorea Social History (Updated 02/08/24 @ 14:05 by Joie Baig) Smoking/Tobacco Use Status: Former Tobacco Use tobacco type: cigarettes Quit Date: 11/14/13 Tobacco: How many years used: 27 Second Hand Exposure: No Smoking risk assessment performed?: Yes Alcohol Intake: never Drug use: Socially Substance use type: marijuana Adopted: No Caregiver/Support person: No Household members: spouse Housing: house Number of Children: 2 number of grandchildren: 2 Communication Needs: Corrective Lenses Education Level: college Details: graduated HS, some college Do you need help understanding health information?: Rarely current occupation: retired Pets and animals: Yes Pets and animals: dog(s) Sexually active: No Do you think of yourself as: straight/heterosexual Current gender identity: female What is your relationship status?: How often do you talk on the phone with friends or family?: once per week How often do you get together with friends or relatives?: decline to answer How often do you attend uatsdin or caodaism services?: decline to answer Do you belong to any clubs or organized social groups?: decline to answer Panel score (0-1 are the most socially isolated patients): 1 What type of physical activity do you participate in: walking Duration: 30-45 minutes/day Frequency: daily Adelina/Christian: Rastafari Special adelina needs: No Seatbelt use: always Drive intox or ride w/intox professional driver: No Firearms in home: Yes Firearms unloaded and locked: Yes Do you feel safe at home: Yes Do you feel safe in your relationship?: Yes
--- NOTE | 2024-05-29 14:17 | HPE_ITS ---
Date of service: 05/29/24 Time of Service: 14:50 Assessment and Plan Assessment and plan (1) CHF exacerbation: Status: Acute Assessment and plan: -Patient presented with signs and symptoms consistent with CHF though does not have formal diagnosis of congestive heart failure and is not on any diuretics despite 05/15 echo findings as noted below -She did recently have 2 vessel bypass and mitral valve surgery -an echocardiogram done on 05/15which showed moderately dilated left ventricle, decrease in ventricular systolic function 45 to 50%, and segmental wall motion abnormalities including basal inferior septal/inferior aneurysm area as well as mildly decreased right ventricular systolic pressure -[facility] cardiology requested repeat echo which will be done on 05/30 (2) Severe mitral regurgitation: Status: Acute Assessment and plan: -s/p mitral valve repair on 04/09/2024 ar [facility] -[facility] contributing factor in new heart failure as noted above -continue warfarin and metoprolol (3) Coronary artery disease: Status: Chronic Assessment and plan: -s/p CABG 2x on 04/09/2024 -continue home asa, statin, lopressor Qualifiers: Associated angina: unspecified whether angina present Coronary Disease- Associated Artery/Lesion type: [place] artery [place] [facility] Qualified Code(s): I25.10 - Atherosclerotic heart disease of [place] coronary artery without angina pectoris History of Present Illness History of Present Illness Chief Complaint: shortness of breath Narrative: 74-year-old female with past medical history of coronary artery disease, severe mitral valve regurgitation and pulmonary hypertension status post mitral valve repair and two-vessel bypass at [facility] on 04/09/2024 presents the emergency department with progressively worsening shortness of breath. Patient states that she had been doing cardiac rehab after her CABG and mitral valve surgery but she stopped going as her exertional shortness of breath became too much for her to continue doing rehab. Since that time she has had ongoing progressive worsening of shortness of breath that prompted her to present to the emergency department. She denies any chest pain, lightheadedness, dizziness, cough, nausea vomiting or diarrhea. In the emergency department the patient was noted as having normal vital signs with slightly elevated blood pressure with systolics in the 170s to 180s, elevated respiratory rate in the high 20's, but saturating in the high 90's on room air. Her CBC and CMP were unremarkable however she was noted as having an elevated proBNP of 11,080, and had an unchanged EKG and troponin. While in the emergency department the patient was given 80 mg of IV Lasix and it was documented as having 850 mL of urine output as 15:03. Emergency room physician also discussed case with patient's internal affairs commander at [facility] who agreed with admitting the patient for diuresis and requested repeat echocardiogram despite 1 being done on May 15, 2024. Which the emergency room physician paged hospitalist for admission for patient with signs and symptoms consistent with an acute exacerbation of CHF. Review of Systems All systems reviewed & are unremarkable except as noted in HPI and below PFSH All Active Problems (Updated 05/29/24 @ 15:40 by Bill Pulliam MD) Breath shortness (Acute) Pleural effusion (Acute) CHF exacerbation (Acute) Chronic anticoagulation (Acute) 04/10/24 per [facility]. -hb Coronary artery disease (Chronic) Elevated serum protein level (Acute) Elevated serum creatinine (Acute) Hemorrhoids (Acute ~07/2023) Hemorrhoid prolapse (Acute) Abnormal thyroid blood test (Acute) Pulmonary hypertension (Acute) Severe mitral regurgitation (Acute) Murmur, cardiac (Acute) Abdominal pain (Acute) Tubular adenoma of colon (Acute ~11/27/18) Chronic interstitial cystitis (Acute) Hypertension (Chronic) Hiatal hernia (Chronic 11/11/16) 3 cm EGD 10/29 Esophagitis, erosive (Chronic 10/25/16) (REFLUX)-10/25/16 Cervical spondylolysis (Chronic) CHRONIC NECK PAIN; 08/17 MRI: DJD, C5-6 MILD SPINA; STENOSIS 2007 MRI showing possible anterior cord impingement; F/U [facility] Medical History (Updated 05/29/24 @ 15:40 by Bill Pulliam MD) Thoracic back pain Mucous cyst of finger Abdominal pain (10/24/12) Cataract (11/29/17) Endometriosis Hematuria History of ectopic Impaired fasting glucose Knee pain Tobacco use disorder Hallux valgus (acquired), right foot Impaired fasting glucose Elevated fasting glucose, normal f/u Hx of ectopic s/p oophorectomy Interstitial cystitis bladder s/p cyst excision; Tobacco use disorder quit 1/04 Endometriosis s/p hysterectomy Knee pain s/p ACL repair and scar revision Hematuria 03/16 IVP NEG; Dr. Landeros--Urologist Abdominal pain 10/24/12 Cataract 11/29/17 unspecified Diverticulosis Colon polyps 01/18 colonoscopy; hyperplastic polyp, sigmoid Family history of colon cancer Sigmoid diverticulum Post-menopausal atrophic vaginitis (12/14/11) Other specified diseases of gallbladder BILIARY DYSKINESIA Osteopenia 10/19 DEXA: -2.1/-2.4/-2.1 Irritable colon Injury of head 09/15 DISABILITY Hyperlipidemia pt. states she is not sure if she has this or not. Frequent urination at night (05/29/18) pt. 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 -hb S/P CABG x 2 04/09/2024. -hb Hx of hemorrhoidectomy (~07/20/23) Status post right foot surgery hammer toe and bunion History of bilateral ligation of fallopian tubes History of bladder surgery Status post abdominal hysterectomy Status post carpal tunnel release Status post cholecystectomy Status post repair of anterior cruciate ligament Status post tonsillectomy and adenoidectomy S/P tonsillectomy and adenoidectomy History of bilateral tubal ligation S/P abdominal hysterectomy endometriosis; oophorectomy; lysis of adhesions History of bladder surgery cyst excision S/P cholecystectomy S/P ACL repair multiple ACL repairs/scar repairs S/P carpal tunnel release right 11/14/00 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 OLGUIN Bladder Surgery CYST EXCISION Family History (Updated 02/08/24 @ 14:01 by Joie Baig) Mother , AGE 72 Perry's disease Myocardial infarction Neoplasm COLON Colon cancer Heart disease Hypertension Father , AGE 70 CAD (coronary artery disease) Myocardial infarction Stroke Alcohol abuse Heart disease Hypertension Sister Heart disease Perry's disease Hyperlipidemia Asthma Melanoma Diabetes Brother Diabetes Heart disease Perry's disease Hyperlipidemia Sister Diabetes Hyperlipidemia Asthma Maternal Grandfather No problems noted. Paternal Grandfather No problems noted. Maternal Grandmother Dementia Paternal Grandmother No problems noted. Other Family history of Perry's chorea Social History (Updated 02/08/24 @ 14:05 by Joie Baig) Smoking/Tobacco Use Status: Former Tobacco Use tobacco type: cigarettes Quit Date: 11/14/13 Tobacco: How many years used: 27 Second Hand Exposure: No Smoking risk assessment performed?: Yes Alcohol Intake: never Drug use: Socially Substance use type: marijuana Adopted: No Caregiver/Support person: No Household members: spouse Housing: house Number of Children: 2 number of grandchildren: 2 Communication Needs: Corrective Lenses Education Level: college Details: graduated HS, some college Do you need help understanding health information?: Rarely current occupation: retired Pets and animals: Yes Pets and animals: dog(s) Sexually active: No Do you think of yourself as: straight/heterosexual Current gender identity: female What is your relationship status?: How often do you talk on the phone with friends or family?: once per week How often do you get together with friends or relatives?: decline to answer How often do you attend cheondoism or islam services?: decline to answer Do you belong to any clubs or organized social groups?: decline to answer Panel score (0-1 are the most socially isolated patients): 1 What type of physical activity do you participate in: walking Duration: 30-45 minutes/day Frequency: daily Adelina/Temple: Buddhism Special adelina needs: No Seatbelt use: always Drive intox or ride w/intox hazmat tanker driver: No Firearms in home: Yes Firearms unloaded and locked: Yes Do you feel safe at home: Yes Do you feel safe in your relationship?: Yes Meds Allergies and Home Medications Allergies Allergy/AdvReac Type Severity Reaction Status Date / Time nitrofurantoin Allergy Severe FELT LIKE Verified 05/29/24 11:02 AIRWAY WAS CLOSING UP Home Medications ?Medication ?Instructions ?Recorded ?Confirmed ?Type psyllium husk 0.4 gram capsule 0.8 g PO DAILY PRN 01/24/24 05/29/24 History (Metamucil) acetaminophen 325 mg capsule 975 mg PO ONCE PRN 04/10/24 05/29/24 History amoxicillin 500 mg capsule 2,000 mg PO ONCE 04/10/24 05/29/24 History aspirin 81 mg tablet,delayed 81 mg PO DAILY 04/10/24 05/29/24 History release (Adult Aspirin Regimen) atorvastatin 20 mg tablet 20 mg PO DAILY 04/10/24 05/29/24 History metoprolol tartrate 50 mg tablet 50 mg PO BID 04/10/24 05/29/24 History warfarin 2.5 mg tablet 2.5 mg PO DAILY 04/10/24 05/29/24 History Exam Narrative Exam Narrative: Well-appearing female sitting up in the chair no acute distress, ANO x 4, heart regular rhythm, lungs clear to auscultation bilaterally, abdomen soft, nontender, nondistended Results Labs 05/29/24 11:21 05/29/24 11:21 Labs: Laboratory Results - last 24 hr 05/29/24 11:21 WBC 10.94 H RBC 3.48 L Hgb 10.2 L Hct 32.7 L MCV 94 MCH 29.3 MCHC 31.2 L RDW 18.3 H Plt Count 295 MPV 10.4 Immature Gran % 0.4 Neutrophils % 59.6 Lymphocytes % 24.4 Monocytes % 8.0 Eosinophils % 6.2 Basophils % 1.4 Nucleated RBC % 0.0 Absolute Neutrophils 6.52 Absolute Lymphocytes 2.67 Absolute Monocytes 0.88 H Absolute Eosinophils 0.68 Absolute Basophils 0.15 PT 16.9 H INR 1.8 H APTT 30.4 Sodium 141 Potassium 4.2 Chloride 105 Carbon Dioxide 24.7 Anion Gap 11.3 H BUN 26 H Creatinine 1.5 H Est GFR (CKD-EPI 2020) 36.34 Glucose 98 Calcium 9.3 Total Bilirubin 1.20 H AST 54 H ALT 43 Alkaline Phosphatase 130 H Troponin I < 50 NT-Pro-B Natriuret Pep 18308 H Total Protein 8.1 Albumin 3.5 Last Vital Signs Temp 97 F L 05/29/24 10:55 Pulse 90 05/29/24 12:19 Resp 19 05/29/24 12:19 BP 181/106 H 05/29/24 12:19 Pulse Ox 100 05/29/24 12:19 Time Spent Time spent with Patient: >75 minutes Time was spent: preparing to see the patient(eg.review tests), obtaining and/or reviewing separately otained hiistory, ordering medications,tests, procedures, referring, communicating with other health care support representative, indepentently interpreting results, counseling the patient and care coordination
[2024-05-29 14:56] LABS: Troponin I < 50 ng/L (< or =60)
--- NOTE | 2024-05-29 15:32 | W.PC.ACHO ---
Registration Status: Primary Language: Preferred Language: ED Information & Data Chief Complaint Dizzy/Sync 05/29/24 13:10 Triage Note SOB for last week, increased 05/29/24 10:55 swelling in bilat feet, light headed, nauseated, worse at night. Subjective states sob upon exertion 05/29/24 11:24 Medical / Surgical History (Last Reviewed 02/06/24 @ 14:19 by Cara Wilkins MD) Thoracic back pain Mucous cyst of finger Abdominal pain (10/24/12) Cataract (11/29/17) Endometriosis Hematuria History of ectopic Impaired fasting glucose Knee pain Tobacco use disorder Hallux valgus (acquired), right foot Impaired fasting glucose Hx of ectopic Interstitial cystitis Tobacco use disorder Endometriosis Knee pain Hematuria Abdominal pain Cataract Diverticulosis Colon polyps Family history of colon cancer Sigmoid diverticulum Post-menopausal atrophic vaginitis (12/14/11) Other specified diseases of gallbladder Osteopenia Irritable colon Injury of head Hyperlipidemia Frequent urination at night (05/29/18) Duodenitis Carpal tunnel syndrome 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) HTN (hypertension) Family history of [place]'s chorea Cervical spondylolysis Sigmoid diverticulosis (Last Updated 05/09/24 @ 09:12 by Consuelo Bernal RN) H/O mitral valve repair S/P CABG x 2 Hx of hemorrhoidectomy (~07/20/23) Status post right foot surgery History of bilateral ligation of fallopian tubes History of bladder surgery Status post abdominal hysterectomy Status post carpal tunnel release Status post cholecystectomy Status post repair of anterior cruciate ligament Status post tonsillectomy and adenoidectomy S/P tonsillectomy and adenoidectomy History of bilateral tubal ligation S/P abdominal hysterectomy History of bladder surgery S/P cholecystectomy S/P ACL repair S/P carpal tunnel release Acquired absence of both cervix and uterus (10/19/16) Ligation of fallopian tube Tonsillectomy and adenoidectomy Repair, ACL , Ectopic Open Carpal Tunnel release Abdominal hysterectomy EGD - MAC (10/25/16) Colonoscopy - MAC Cholecystectomy (~2011) Extraction of cataract Bladder Surgery Most Recent Vital Signs Temperature 36.1 C L 05/29/24 10:55 Temperature Source Tympanic 05/29/24 10:55 Pulse 78 05/29/24 14:01 Pulse 79 05/29/24 14:01 Respiratory Rate 28 H 05/29/24 14:01 Respiratory Effort Normal, Non-Labored, Short of Breath 05/29/24 11:24 Respiratory Depth Normal 05/29/24 11:24 Respiratory Pattern Normal 05/29/24 11:24 Blood Pressure 172/108 H 05/29/24 14:01 Blood Pressure Mean 127 05/29/24 14:01 Blood Pressure Position Sitting 05/29/24 10:55 Pulse Oximetry 97 05/29/24 14:01 Oxygen Delivery Method Room Air 05/29/24 10:55 Oxygen Flow Rate 0 05/29/24 10:55 Pain Level 0 05/29/24 10:55 Allergies nitrofurantoin Allergy (Severe, Verified 05/29/24 11:02) FELT LIKE AIRWAY WAS CLOSING UP Precautions Isolation Standard precaution 05/29/24 11:24 IV IV Catheter Type [Left Saline Lock Antecubital] IV Catheter Gauge [Left 20 Antecubital] Diet Orders Category Date Time Status Heart Healthy Eating [DIET] Nutrition 05/29/24 Dinner Active Diagnostics 05/29/24 05/29/24 Range/Units 14:31 11:21 WBC 10.94 H (4.4-10.8) 10^3/uL RBC 3.48 L (3.93-5.22) 10^6/uL Hgb 10.2 L (11.2-15.7) g/dL Hct 32.7 L (36.0-46.0) % MCV 94 (80-95) fL MCH 29.3 (27.0-33.0) pg MCHC 31.2 L (32.0-36.0) % RDW 18.3 H (11.7-14.6) % Plt Count 295 (130-400) 10^3/uL MPV 10.4 (8.0-11.0) fL Immature Gran % 0.4 % Neutrophils % 59.6 % Lymphocytes % 24.4 % Monocytes % 8.0 % Eosinophils % 6.2 % Basophils % 1.4 % Nucleated RBC % 0.0 (0.0-0.3) % Absolute Neutrophils 6.52 (1.2-6.7) 10^3/uL Absolute Lymphocytes 2.67 (1.2-3.4) 10^3/uL Absolute Monocytes 0.88 H (0.1-0.8) 10^3/uL Absolute Eosinophils 0.68 (0.0-0.7) 10^3/uL Absolute Basophils 0.15 (0.0-0.2) 10^3/uL PT 16.9 H (9.1-11.1) sec INR 1.8 H (0.9-1.1) APTT 30.4 (23.6-32.8) sec Sodium 141 (136-145) mmol/L Potassium 4.2 (3.5-5.1) mmol/L Chloride 105 (98-107) mmol/L Carbon Dioxide 24.7 (21.0-32.0) mmol/L Anion Gap 11.3 H (3-11) mmol/L BUN 26 H (7-18) mg/dL Creatinine 1.5 H (0.55-1.02) mg/dL Est GFR (CKD-EPI 2020) 36.34 (mL/min/1.73m2) Glucose 98 (74-106) mg/dL Calcium 9.3 (8.5-10.1) mg/dL Total Bilirubin 1.20 H (0.2-1.0) mg/dL AST 54 H (15-37) U/L ALT 43 (14-59) U/L Alkaline Phosphatase 130 H (46-116) U/L Troponin I < 50 < 50 (< or =60) ng/L NT-Pro-B Natriuret Pep 78919 H (<300) pg/mL Total Protein 8.1 (6.4-8.2) g/dL Albumin 3.5 (3.4-5.0) g/dL Intake and Output - 24 Hour Total 05/29/24 10:49 thru 05/29/24 14:42 Intake Total 10 Output Total 850 Balance -840 Weight 50.5 kg Intake: IV 10 Output: Urine 850 Other: Urine Color Pale Urine Appearance Clear Urine Odor None Voiding Methods Toilet Falls Risk Assessment History of Falls No History 05/29/24 11:24 Contributing Factors No Factors 05/29/24 11:24 Ambulatory Aids Independent 05/29/24 11:24 Tubes/Lines None 05/29/24 11:24 Gait Evaluation No gait disturbance 05/29/24 11:24 Cognition No cognitive impairment 05/29/24 11:24 Fall Total Score 0 05/29/24 11:24 Level of Risk Standard/Low Risk 05/29/24 11:24 Problems (Last Reviewed 02/06/24 @ 14:19 by Cara Wilkins MD) CHF exacerbation (Acute) Coronary artery disease (Chronic) Severe mitral regurgitation (Acute) v v v v v v v v v Sending and/or Receiving Nurses: Please use comment section below to note any information pertinent to the patient hand-off not included above. Information / Comments: Report received from: Africa Rivera, 1936
--- NOTE | 2024-05-29 16:38 | PHA.REVIEW2 ---
Pharmacy Admission Review Admission Clinical Review Admission Pharmacy Review: Breath shortness (Acute) Pleural effusion (Acute) CHF exacerbation (Acute) Chronic anticoagulation (Acute) Severe mitral regurgitation (Acute) nitrofurantoin Allergy (Severe, Verified 05/29/24 11:02) FELT LIKE AIRWAY WAS CLOSING UP Resuscitation Status Full Code Height 5 ft 2 in Weight 50.5 kg Pharmacy Admission Review Renal Dosing Renal Dosing: BUN 26 mg/dL (7-18) H 05/29/24 11:21 Creatinine 1.5 mg/dL (0.55-1.02) H 05/29/24 11:21 Medications needing adjustments: Reviewed (CrCl 25.5 mL/min) List of meds needing interventions: Current medications are okay Anticoagulation Anticoagulation: Hgb 10.2 g/dL (11.2-15.7) L 05/29/24 11:21 Hct 32.7 % (36.0-46.0) L 05/29/24 11:21 Plt Count 295 10^3/uL (130-400) 05/29/24 11:21 INR 1.8 (0.9-1.1) H 05/29/24 11:21 Creatinine 1.5 mg/dL (0.55-1.02) H 05/29/24 11:21 DVT Prophylaxis: Reviewed (INR subtherapeutic) Medications: Warfarin (2.5mg PO daily (home dose)) Relevant Labs Relevant Labs: Sodium 141 mmol/L (136-145) 05/29/24 11:21 Potassium 4.2 mmol/L (3.5-5.1) 05/29/24 11:21 Chloride 105 mmol/L (98-107) 05/29/24 11:21 Electrolytes, C-Reactive P, ESR: Reviewed Cardiac Review Cardiac Review: Troponin I < 50 ng/L (< or =60) 05/29/24 14:31 NT-Pro-B Natriuret Pep 32016 pg/mL (<300) H 05/29/24 11:21 Blood Pressure 156/100 1640 Blood Pressure 170/100 1543 Blood Pressure 158/97 1533 Blood Pressure 158/97 1501 Blood Pressure 166/90 1430 Blood Pressure 172/108 1401 Blood Pressure 175/99 1331 Blood Pressure 172/106 1315 Blood Pressure 164/93 1301 Blood Pressure 184/92 1246 Blood Pressure 174/103 1231 Blood Pressure 181/106 1219 BP, HR, EF%: Reviewed (HR WNL) QTc Review QTc: Reviewed (EKG report pending) IV to PO Switch IV Medications: Reviewed Home Meds Home Med List reviewed: Reviewed Relevent Home Meds Not ordered & why?: amoxicillin (prophylaxis for dental procedures) and psyllium (PRN) Current Meds Current Medication Order Review: Reviewed
[2024-05-29] MEDS: Metoprolol 50 MG TAB PO (21:50)
[2024-05-29] MEDS: Normal Saline Flush 10 ML SYR IVP (21:50)
[2024-05-30] MEDS: Acetaminophen 325 MG TAB PO (00:29)
[2024-05-30 03:28] VITALS: BP 124/82; PULSE 75; RESP 16; TEMP 36.5; O2SAT 98
[2024-05-30 06:45] LABS: HCT 30.3 % (36.0-46.0); HGB 9.9 g/dL (11.2-15.7); MCH 30.2 pg (27.0-33.0); MCHC 32.7 % (32.0-36.0); MCV 92 fL (80-95); MPV 11.1 fL (8.0-11.0); Platelet Count 313 10^3/uL (130-400); RBC 3.28 10^6/uL (3.93-5.22); RDW 18.2 % (11.7-14.6); RDW-SD 60.1 fL; WBC 9.85 10^3/uL (4.4-10.8)
[2024-05-30 06:57] LABS: INR 1.6 (0.9-1.1); Prothrombin Time 15.3 sec (9.1-11.1)
[2024-05-30 07:03] LABS: Anion Gap 10.5 mmol/L (3-11); BUN 34 mg/dL (7-18); CO2 24.5 mmol/L (21.0-32.0); CREATININE 1.4 mg/dL (0.55-1.02); Chloride 104 mmol/L (98-107); Estimated GFR 39.48 (mL/min/1.73m2); Glucose 91 mg/dL (74-106); Magnesium 1.8 mg/dL (1.8-2.4); Potassium 3.6 mmol/L (3.5-5.1); Sodium 139 mmol/L (136-145)
[2024-05-30 07:21] VITALS: BP 125/78; PULSE 79; RESP 18; TEMP 36; O2SAT 97
--- NOTE | 2024-05-30 08:02 | INITIAL_ITS ---
Date of service: 05/30/24 Time of Service: 08:03 Care Management Initial Assmt Initial Assessment Reason for Hospitalization: CHF Exacerbation Functional Status/Living Situation Patient Presentation: Diana presented to [facility] from [facility] for dizziness and shortness of breath. Town of Residence: [place] Resides with: Spouse (Paulino) Significant Other/Family: Local Natural Supports: Daughter: Diana in [facility] Son: Sherwin: [place], [place] Employment Status: Retired Instrumental Activities of Daily Living (ADLs): Requires support Advance Directives Advance Directives: Do you have an Advance Directive: Y 09/18/18 09:04 AD On File at [facility]: Y 09/18/18 09:04 Date Asked 05/29/24 05/29/24 11:22 AD Date Reviewed 05/23/24 05/23/24 14:06 COLST On File at [facility] COLST Date Scanned Comment: , Paulino as agent. Code Status Resuscitation Status Full Code Insurance Coverage/Financial Issues Insurance: [employer] Care Team Visit Care Team Role Provider Type Nelda Oscar MD, [place] Primary Care Provider , [facility] MEDICAL STAFF Bill Pulliam MD Emergency Provider [facility] STAFF PHYSICIAN Matt Donis MD Admit Provider [facility] STAFF PHYSICIAN Attending Provider Discharge Potential Discharge Needs: Imaging/labs (ECHO) and PT Evaluation (Discharged from PT 04/27/24) Anticipated Barriers to Discharge: Medical Status Patient/Family Education Needs: Review discharge instructions, discuss Ask Me Three Transportation: Private vehicle Plan: Diana continues to be closely monitored and treated, ECHO pending. Anticipate PT order as Diana was discharged from /PT on 04/27/24, CM following. PFSH All Active Problems (Updated 05/31/24 @ 00:09 by ALYSSA FAM) CHF exacerbation (Acute) Chronic anticoagulation (Acute) 04/10/24 per [facility] [place]. -hb Coronary artery disease (Chronic) Elevated serum protein level (Acute) Elevated serum creatinine (Acute) Hemorrhoids (Acute ~07/2023) Hemorrhoid prolapse (Acute) Abnormal thyroid blood test (Acute) Pulmonary hypertension (Acute) Severe mitral regurgitation (Acute) Murmur, cardiac (Acute) Abdominal pain (Acute) Tubular adenoma of colon (Acute ~11/27/18) Chronic interstitial cystitis (Acute) Hypertension (Chronic) Hiatal hernia (Chronic 11/11/16) 3 cm EGD 10/29 Esophagitis, erosive (Chronic 10/25/16) (REFLUX)-10/25/16 Cervical spondylolysis (Chronic) CHRONIC NECK PAIN; 08/17 MRI: DJD, C5-6 MILD SPINA; STENOSIS 2007 MRI showing possible anterior cord impingement; F/U [facility] Medical History (Updated 05/31/24 @ 00:09 by ALYSSA FAM) Thoracic back pain Mucous cyst of finger Abdominal pain (10/24/12) Cataract (11/29/17) Endometriosis Hematuria History of ectopic Impaired fasting glucose Knee pain Tobacco use disorder Hallux valgus (acquired), right foot Impaired fasting glucose Elevated fasting glucose, normal f/u Hx of ectopic s/p oophorectomy Interstitial cystitis bladder s/p cyst excision; Tobacco use disorder quit 11/17 Endometriosis s/p hysterectomy Knee pain s/p ACL repair and scar revision Hematuria 03/16 IVP NEG; Dr. Landeros--Urologist Abdominal pain 10/24/12 Cataract 11/29/17 unspecified Diverticulosis Colon polyps 01/18 colonoscopy; hyperplastic polyp, sigmoid Family history of colon cancer Sigmoid diverticulum Post-menopausal atrophic vaginitis (12/14/11) Other specified diseases of gallbladder BILIARY DYSKINESIA Osteopenia 10/19 DEXA: -2.1/-2.4/-2.1 Irritable colon Injury of head 09/15 DISABILITY Hyperlipidemia pt. states she is not sure if she has this or not. Frequent urination at night (05/29/18) pt. 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 -hb S/P CABG x 2 04/09/2024. -hb Hx of hemorrhoidectomy (~07/20/23) Status post right foot surgery hammer toe and bunion History of bilateral ligation of fallopian tubes History of bladder surgery Status post abdominal hysterectomy Status post carpal tunnel release Status post cholecystectomy Status post repair of anterior cruciate ligament Status post tonsillectomy and adenoidectomy S/P tonsillectomy and adenoidectomy History of bilateral tubal ligation S/P abdominal hysterectomy endometriosis; oophorectomy; lysis of adhesions History of bladder surgery cyst excision S/P cholecystectomy S/P ACL repair multiple ACL repairs/scar repairs S/P carpal tunnel release right 11/14/00 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 OLGUIN Bladder Surgery CYST EXCISION Family History (Updated 02/08/24 @ 14:01 by Joie Baig) Mother , AGE 72 Bushra's disease Myocardial infarction Neoplasm COLON Colon cancer Heart disease Hypertension Father , AGE 70 CAD (coronary artery disease) Myocardial infarction Stroke Alcohol abuse Heart disease Hypertension Sister Heart disease Bushra's disease Hyperlipidemia Asthma Melanoma Diabetes Brother Diabetes Heart disease [place]'s disease Hyperlipidemia Sister Diabetes Hyperlipidemia Asthma Maternal Grandfather No problems noted. Paternal Grandfather No problems noted. Maternal Grandmother Dementia Paternal Grandmother No problems noted. Other Family history of Bushra's chorea Social History (Updated 02/08/24 @ 14:05 by Joie Baig) Smoking/Tobacco Use Status: Former Tobacco Use tobacco type: cigarettes Quit Date: 11/14/13 Tobacco: How many years used: 27 Second Hand Exposure: No Smoking risk assessment performed?: Yes Alcohol Intake: never Drug use: Socially Substance use type: marijuana Adopted: No Caregiver/Support person: No Household members: spouse Housing: house Number of Children: 2 number of grandchildren: 2 Communication Needs: Corrective Lenses Education Level: college Details: graduated HS, some college Do you need help understanding health information?: Rarely current occupation: retired Pets and animals: Yes Pets and animals: dog(s) Sexually active: No Do you think of yourself as: straight/heterosexual Current gender identity: female What is your relationship status?: How often do you talk on the phone with friends or family?: once per week How often do you get together with friends or relatives?: decline to answer How often do you attend restoration or jewish services?: decline to answer Do you belong to any clubs or organized social groups?: decline to answer Panel score (0-1 are the most socially isolated patients): 1 What type of physical activity do you participate in: walking Duration: 30-45 minutes/day Frequency: daily Adelina/Zoroastrian: Scientology Special adelina needs: No Seatbelt use: always Drive intox or ride w/intox stock driver: No Firearms in home: Yes Firearms unloaded and locked: Yes Do you feel safe at home: Yes Do you feel safe in your relationship?: Yes SDOH(Care Management) Screening Will the Patient Participate in the Screening?: Unable to obtain Do you worry about having a steady place to live?: no Problems where you live: no known problems In the past 12 months, have you had to go without electric, gas, oil or water in your home?: no Have you or anyone in your house had to go without enough food to eat?: no Has lack of transportation kept you from medical appointments or from doing things needed for daily living?: no Has anyone in your support network made you feel unsafe for any reason?: no
[2024-05-30] MEDS: Aspirin E.C. 81 MG TABEC PO (09:06)
[2024-05-30] MEDS: Atorvastatin 20 MG TAB PO (09:06)
[2024-05-30] MEDS: Normal Saline Flush 10 ML SYR IVP (09:06)
[2024-05-30] MEDS: Furosemide 20 MG TAB PO (09:06)
[2024-05-30] MEDS: Metoprolol 50 MG TAB PO (09:06)
[2024-05-30 10:27] VITALS: BP 134/90; PULSE 70; RESP 20; TEMP 36.7; O2SAT 99
--- NOTE | 2024-05-30 13:45 | CHAPLAIN ---
Diana was sitting up in a chair when I visited. Her had just arrived. She was pleasant and quiet. I explained my role and offered support.
[2024-05-30 14:27] VITALS: BP 104/75; PULSE 76; RESP 18; TEMP 36.8; O2SAT 98
--- NOTE | 2024-05-30 15:43 | DSE_ITS ---
Date of service: 05/30/24 Time of Service: 15:43 DS: Diagnosis Discharge Diagnosis (1) CHF exacerbation: Status: Acute (2) Severe mitral regurgitation: Status: Acute (3) Coronary artery disease: Status: Chronic Discharge Plan Disposition Patient Disposition: Home Condition: Good Discharge Details Reason For Visit: Acute Exacerbation CHF Admit Date/Time: 05/29/24 14:17 Admit Provider: Matt Donis Attending Provider: Matt Donis Primary Care Provider: Nelda Oscar Hospital Course Hospital Course: Patient initially presented with signs and symptoms consistent with fluid overload after having had recent two-vessel coronary artery bypass graft and mitral valve repair [facility] at the end of March. She had had progressively worsening shortness of breath that prevented her from continuing cardiac rehab and ultimately presented to the emergency department. She had elevated pro BNP and imaging is suggestive of pulmonary edema although it was mild. Additionally, while the patient was exertionally dyspneic she did not have any shortness of breath at rest and did not require any supplemental oxygen during hospitalization. In the ED she received 80 mg of IV Lasix and had significant immediate improvement of her symptoms which continued when restarting her previous home dose of 20 mg of Lasix daily. Patient also had an echocardiogram in the morning of 05/30/2024 that was read by [facility] and it was largely unchanged from echo obtained 2 weeks ago with the exception of noted improvement of her EF from 45-50% up 50%. Given the patient has significant improvement of her symptoms was determined that she was stable for discharge I recommend that she continue taking Lasix 20 mg daily and have close follow-up with her wedding coordinator. Home Meds and New Rx's Prescriptions: New furosemide 20 mg Tablet 20 mg PO DAILY Qty: 0 0RF Continued psyllium husk [Metamucil] 0.4 gram capsule 0.8 g PO DAILY PRN warfarin 2.5 mg tablet 2.5 mg PO QPM Protocol: Dose Management Condition: Tuesday Dose/Route: 2.5 mg Instruction: 1 x 2.5 mg tablet Condition: Tuesday Dose/Route: 2.5 mg Instruction: 1 x 2.5 mg tablet Condition: Tuesday Dose/Route: 5 mg Instruction: 2 x 2.5 mg tablets Condition: Tuesday Dose/Route: 2.5 mg Instruction: 1 x 2.5 mg tablet Condition: Dose/Route: 2.5 mg Instruction: 1 x 2.5 mg tablet Condition: Tuesday Dose/Route: 2.5 mg Instruction: 1 x 2.5 mg tablet Condition: Tuesday Dose/Route: 2.5 mg Instruction: 1 x 2.5 mg tablet Protocol Text: Adjustment Start Date: Tuesday05/18/24 INR Value: 1.5 INR Date: 05/18/24 Recheck Date: 06/01/24 acetaminophen 325 mg capsule 975 mg PO ONCE PRN Rx Instructions: per [facility] 04/08/24. -hb amoxicillin 500 mg capsule 2,000 mg PO ONCE Rx Instructions: Take 4 capsules PO ONCE, prior to any dental procedure. per [facility] 04/08/24. -hb aspirin [Adult Aspirin Regimen] 81 mg tablet,delayed release (DR/EC) 81 mg PO DAILY Rx Instructions: per [facility] 04/08/24. -hb atorvastatin 20 mg tablet 20 mg PO DAILY Rx Instructions: per [facility] 04/08/24. -hb metoprolol tartrate 50 mg tablet 50 mg PO BID Rx Instructions: per [facility] 04/08/24. -hb Discharge Instructions Activity:: Activity as Tolerated Equipment/Supplies:: No Equipment Needed Diet:: As Tolerated Discharge Orders Discharge Orders: Discharge Order (Routine); Ordered 05/30/24 Ordered By: Matt Donis DS: Summary Time Spent with Patient providing and/or coordinating discharge services: Greater than 30 minutes Status at Discharge Functional status at discharge: independent ambulation Overall status at discharge: patient is back to baseline Mental Status: mental status grossly normal Speech and Movement: speech and movement normal Mood: congruent mood Affect: normal affect Quality:SDOH Health Related Social Needs: No Data to Display Exam Narrative Exam Narrative: Well-appearing female sitting up in the chair no acute distress, ANO x 4, heart regular rhythm, lungs clear to auscultation bilaterally, abdomen soft, nontender, nondistended Psych Mental Status: mental status grossly normal Speech and Movement: speech and movement normal Mood: congruent mood Affect: normal affect DS: Data Vitals/I&O Vitals and I&O: Vital Signs Temperature 98.2 F 05/30/24 14:27 Temperature Source Temporal Artery Scan 05/30/24 14:27 Pulse 76 05/30/24 14:27 Pulse Rhythm Regular 05/30/24 09:00 Pulse 79 05/29/24 15:01 Respiratory Rate 18 05/30/24 14:27 Respiratory Effort Normal 05/30/24 09:00 Respiratory Depth Normal 05/30/24 09:00 Respiratory Pattern Normal 05/30/24 09:00 Blood Pressure 104/75 05/30/24 14:27 Blood Pressure Mean 117 05/29/24 15:01 Blood Pressure Position Sitting 05/29/24 10:55 Pulse Oximetry 98 05/30/24 14:27 Oxygen Delivery Method Room Air 05/30/24 14:27 Oxygen Flow Rate 0 05/30/24 14:27 Pain Level 0 05/30/24 03:28 Comment RN in room when vitals were taken. 05/29/24 15:45 Intake & Output 05/29/24 05/30/24 05/30/24 17:59 05:59 17:59 Intake Total 10 Output Total 1250 / 1250 900 / 2150 200 / 200 Balance -1240 / -1240 -900 / -2140 -200 / -200 Weight 111 lb 5.335 oz 104 lb 15.04 oz Intake: IV Output: Urine 1250 / 1250 900 / 2150 200 / 200 Other: Urine Color Pale Yellow Straw Urine Appearance Clear Clear Clear Urine Odor None None Normal Voiding Methods Toilet Toilet Data Completed and Pending Labs on day of discharge: Labs from last 24 hours 05/30/24 06:08 WBC 9.85 RBC 3.28 L Hgb 9.9 L Hct 30.3 L MCV 92 MCH 30.2 MCHC 32.7 RDW 18.2 H Plt Count 313 MPV 11.1 H PT 15.3 H INR 1.6 H Sodium 139 Potassium 3.6 Chloride 104 Carbon Dioxide 24.5 Anion Gap 10.5 BUN 34 H Creatinine 1.4 H Est GFR (CKD-EPI 2020) 39.48 Glucose 91 Calcium 9.0 Magnesium 1.8 PFSH All Active Problems (Updated 05/29/24 @ 15:40 by Bill Pulliam MD) Breath shortness (Acute) Pleural effusion (Acute) CHF exacerbation (Acute) Chronic anticoagulation (Acute) 04/10/24 per [facility]. -hb Coronary artery disease (Chronic) Elevated serum protein level (Acute) Elevated serum creatinine (Acute) Hemorrhoids (Acute ~07/2023) Hemorrhoid prolapse (Acute) Abnormal thyroid blood test (Acute) Pulmonary hypertension (Acute) Severe mitral regurgitation (Acute) Murmur, cardiac (Acute) Abdominal pain (Acute) Tubular adenoma of colon (Acute ~11/27/18) Chronic interstitial cystitis (Acute) Hypertension (Chronic) Hiatal hernia (Chronic 11/11/16) 3 cm EGD 10/29 Esophagitis, erosive (Chronic 10/25/16) (REFLUX)-10/25/16 Cervical spondylolysis (Chronic) CHRONIC NECK PAIN; 08/17 MRI: DJD, C5-6 MILD SPINA; STENOSIS 2007 MRI showing possible anterior cord impingement; F/U [facility] Medical History (Updated 05/29/24 @ 15:40 by Bill Pulliam MD) Thoracic back pain Mucous cyst of finger Abdominal pain (10/24/12) Cataract (11/29/17) Endometriosis Hematuria History of ectopic Impaired fasting glucose Knee pain Tobacco use disorder Hallux valgus (acquired), right foot Impaired fasting glucose Elevated fasting glucose, normal f/u Hx of ectopic s/p oophorectomy Interstitial cystitis bladder s/p cyst excision; Tobacco use disorder quit 11/17 Endometriosis s/p hysterectomy Knee pain s/p ACL repair and scar revision Hematuria 03/16 IVP NEG; Dr. Landeros--Urologist Abdominal pain 10/24/12 Cataract 11/29/17 unspecified Diverticulosis Colon polyps 01/18 colonoscopy; hyperplastic polyp, sigmoid Family history of colon cancer Sigmoid diverticulum Post-menopausal atrophic vaginitis (12/14/11) Other specified diseases of gallbladder BILIARY DYSKINESIA Osteopenia 10/19 DEXA: -2.1/-2.4/-2.1 Irritable colon Injury of head 09/15 DISABILITY Hyperlipidemia pt. states she is not sure if she has this or not. Frequent urination at night (05/29/18) pt. 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 -hb S/P CABG x 2 04/09/2024. -hb Hx of hemorrhoidectomy (~07/20/23) Status post right foot surgery hammer toe and bunion History of bilateral ligation of fallopian tubes History of bladder surgery Status post abdominal hysterectomy Status post carpal tunnel release Status post cholecystectomy Status post repair of anterior cruciate ligament Status post tonsillectomy and adenoidectomy S/P tonsillectomy and adenoidectomy History of bilateral tubal ligation S/P abdominal hysterectomy endometriosis; oophorectomy; lysis of adhesions History of bladder surgery cyst excision S/P cholecystectomy S/P ACL repair multiple ACL repairs/scar repairs S/P carpal tunnel release right 11/14/00 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 OLGUIN Bladder Surgery CYST EXCISION Family History (Updated 02/08/24 @ 14:01 by Joie Baig) Mother , AGE 72 [place]'s disease Myocardial infarction Neoplasm COLON Colon cancer Heart disease Hypertension Father , AGE 70 CAD (coronary artery disease) Myocardial infarction Stroke Alcohol abuse Heart disease Hypertension Sister Heart disease [place]'s disease Hyperlipidemia Asthma Melanoma Diabetes Brother Diabetes Heart disease Bushra's disease Hyperlipidemia Sister Diabetes Hyperlipidemia Asthma Maternal Grandfather No problems noted. Paternal Grandfather No problems noted. Maternal Grandmother Dementia Paternal Grandmother No problems noted. Other Family history of [place]'s chorea Social History (Updated 02/08/24 @ 14:05 by Joie Baig) Smoking/Tobacco Use Status: Former Tobacco Use tobacco type: cigarettes Quit Date: 11/14/13 Tobacco: How many years used: 27 Second Hand Exposure: No Smoking risk assessment performed?: Yes Alcohol Intake: never Drug use: Socially Substance use type: marijuana Adopted: No Caregiver/Support person: No Household members: spouse Housing: house Number of Children: 2 number of grandchildren: 2 Communication Needs: Corrective Lenses Education Level: college Details: graduated HS, some college Do you need help understanding health information?: Rarely current occupation: retired Pets and animals: Yes Pets and animals: dog(s) Sexually active: No Do you think of yourself as: straight/heterosexual Current gender identity: female What is your relationship status?: How often do you talk on the phone with friends or family?: once per week How often do you get together with friends or relatives?: decline to answer How often do you attend muslim or quaker services?: decline to answer Do you belong to any clubs or organized social groups?: decline to answer Panel score (0-1 are the most socially isolated patients): 1 What type of physical activity do you participate in: walking Duration: 30-45 minutes/day Frequency: daily Adelina/Tenriism: Orthodoxy Special adelina needs: No Seatbelt use: always Drive intox or ride w/intox utility worker driver: No Firearms in home: Yes Firearms unloaded and locked: Yes Do you feel safe at home: Yes Do you feel safe in your relationship?: Yes Time Spent with Patient Time Spent with Patient: <45 minutes Time was spent: preparing to see the patient(eg.review tests), obtaining and/or reviewing separately otained hiistory, ordering medications,tests, procedures, referring, communicating with other health day care teacher, indepentently interpreting results, counseling the patient and care coordination
== END 2024-05-30 17:01 | disposition home or self-care (01) ==
LOC: ER 11:34 → MS 15:34
PROVIDERS: Admitting Provider Family Medicine; Emergency Provider Emergency Medicine; PCP Family Medicine; Visit Provider Family Medicine
DX: I11.0 Hypertensive heart disease with heart failure (principal); I50.9 Heart failure, unspecified; I34.0 Nonrheumatic mitral (valve) insufficiency; I25.10 Atherosclerotic heart disease of native coronary artery without angina pectoris; R06.02 Shortness of breath; Z79.01 Long term (current) use of anticoagulants; I27.20 Pulmonary hypertension, unspecified; K22.10 Ulcer of esophagus without bleeding; M47.812 Spondylosis without myelopathy or radiculopathy, cervical region
CPT/HCPCS: 00123; 36415; 80048; 80053; 85027; 93005; 96374; 99285; 71045; 83735; 83880; 84484; 85025; 85610; 85730; 93010; 93306; 99223; 99238; G0378; J1940

== ENCOUNTER → 2024-06-19 10:50 | Outpatient (BNVA) | payer OTHER, SELFPAY | PROVIDERS: PCP Family Medicine; Referring Provider Family Medicine; Visit Provider Internal Medicine Cardiovascular Disease | DX: I34.0 Nonrheumatic mitral (valve) insufficiency (principal); I25.10 Atherosclerotic heart disease of native coronary artery without angina pectoris | CPT/HCPCS: 99213 ==

== ENCOUNTER 2024-08-20 03:15 | Outpatient (CLI) | payer OTHER, SELFPAY ==
[2024-08-20 13:01] LABS: CREATININE 1.8 mg/dL (0.55-1.02)
== END 2024-08-20 03:16 | disposition home or self-care (01) ==
LOC: LOS 03:15
PROVIDERS: PCP Family Medicine; Visit Provider Nurse Practitioner Family
DX: I34.0 Nonrheumatic mitral (valve) insufficiency (principal); Z79.01 Long term (current) use of anticoagulants; Z98.890 Other specified postprocedural states
CPT/HCPCS: 36415; 82565

== ENCOUNTER 2024-10-26 01:14 | Outpatient (CLI) | payer OTHER, SELFPAY ==
[2024-10-26 12:15] LABS: HCT 33.4 % (36.0-46.0); HGB 10.4 g/dL (11.2-15.7); MCH 28.3 pg (27.0-33.0); MCHC 31.1 % (32.0-36.0); MCV 91 fL (80-95); MPV 9.5 fL (8.0-11.0); Platelet Count 430 10^3/uL (130-400); RBC 3.68 10^6/uL (3.93-5.22); RDW 16.4 % (11.7-14.6); RDW-SD 53.6 fL
[2024-10-26 12:34] LABS: Anion Gap 10.1 mmol/L (3-11); BUN 40 mg/dL (7-18); CO2 26.9 mmol/L (21.0-32.0); CREATININE 1.8 mg/dL (0.55-1.02); Calcium 9.2 mg/dL (8.5-10.1); Chloride 104 mmol/L (98-107); Glucose 82 mg/dL (74-106); Potassium 3.3 mmol/L (3.5-5.1); Sodium 141 mmol/L (136-145)
== END 2024-10-26 01:15 | disposition home or self-care (01) ==
LOC: LOS 01:14
PROVIDERS: PCP Family Medicine; Visit Provider Internal Medicine Cardiovascular Disease
DX: I50.9 Heart failure, unspecified (principal)
CPT/HCPCS: 36415; 80048; 85027

== ENCOUNTER 2024-11-01 08:58 | Outpatient (CLI) | payer OTHER, SELFPAY ==
--- NOTE | 2024-11-01 08:45 | RT.EKG_ITS ---
APPROVED REPORT Exam: Resting ECG Reason for Exam: CAD Patient Location: O HR:65 bpm ECG Measurements Heart Rate 65 AXIS WA 179 P 61 QRSd 108 QRS 15 QT 469 T -16 QTc 488 Conclusion Sinus rhythm...normal P axis, V-rate 50- 99 Borderline prolonged QT interval...QTc >485mS
== END 2024-11-01 08:59 | disposition home or self-care (01) ==
LOC: DI.CARD 08:59
PROVIDERS: PCP Family Medicine; Visit Provider Internal Medicine Cardiovascular Disease
DX: I25.10 Atherosclerotic heart disease of native coronary artery without angina pectoris (principal)
CPT/HCPCS: 93010

== ENCOUNTER → 2024-11-01 13:20 | Outpatient (BNVA) | payer OTHER, SELFPAY | PROVIDERS: PCP Family Medicine; Visit Provider Internal Medicine Cardiovascular Disease | DX: I25.10 Atherosclerotic heart disease of native coronary artery without angina pectoris (principal); I34.0 Nonrheumatic mitral (valve) insufficiency | CPT/HCPCS: 93005; 99213 ==

== ENCOUNTER 2024-11-16 01:36 | Outpatient (CLI) | payer MEDICARE, SELFPAY ==
[2024-11-16 12:26] LABS: Anion Gap 6.4 mmol/L (3-11); BUN 41 mg/dL (7-18); CO2 31.6 mmol/L (21.0-32.0); CREATININE 2.2 mg/dL (0.55-1.02); Calcium 8.5 mg/dL (8.5-10.1); Chloride 104 mmol/L (98-107); Estimated GFR 22.95 (mL/min/1.73m2); Glucose 85 mg/dL (74-106); Potassium 3.4 mmol/L (3.5-5.1); Sodium 142 mmol/L (136-145)
== END 2024-11-16 01:37 | disposition home or self-care (01) ==
LOC: LOS 01:36
PROVIDERS: PCP Family Medicine; Visit Provider Family Medicine
DX: Z98.890 Other specified postprocedural states (principal); Z79.899 Other long term (current) drug therapy
CPT/HCPCS: 36415; 80048

== ENCOUNTER 2024-12-07 02:16 | Outpatient (CLI) | payer MEDICARE, SELFPAY ==
[2024-12-07 13:03] LABS: Anion Gap 5.6 mmol/L (3-11); BUN 27 mg/dL (7-18); CO2 31.4 mmol/L (21.0-32.0); Calcium 9.6 mg/dL (8.5-10.1); Chloride 106 mmol/L (98-107); Estimated GFR 25.73 (mL/min/1.73m2); Glucose 96 mg/dL (74-106); NT-proBNP 3920 pg/mL (<300); Potassium 3.3 mmol/L (3.5-5.1); Sodium 143 mmol/L (136-145)
== END 2024-12-07 02:17 | disposition home or self-care (01) ==
LOC: LOS 02:16
PROVIDERS: PCP Family Medicine; Visit Provider Family Medicine
DX: I50.9 Heart failure, unspecified (principal); R79.89 Other specified abnormal findings of blood chemistry; I10 Essential (primary) hypertension; I34.0 Nonrheumatic mitral (valve) insufficiency
CPT/HCPCS: 36415; 80048; 83880

== ENCOUNTER 2024-12-21 01:21 | Outpatient (CLI) | payer MEDICARE, SELFPAY ==
[2024-12-21 13:05] LABS: ALT 28 U/L (14-59); AST 31 U/L (15-37); Albumin 3.3 g/dL (3.4-5.0); Alkaline Phosphatase 227 U/L (46-116); BUN 36 mg/dL (7-18); CO2 26.9 mmol/L (21.0-32.0); Calcium 9.4 mg/dL (8.5-10.1); Estimated GFR 25.73 (mL/min/1.73m2); Glucose 119 mg/dL (74-106); Total Protein 7.9 g/dL (6.4-8.2)
[2024-12-21 13:12] LABS: Anion Gap 9.1 mmol/L (3-11); Chloride 104 mmol/L (98-107); Sodium 140 mmol/L (136-145)
[2024-12-21 13:20] LABS: Potassium 2.9 mmol/L (3.5-5.1)
== END 2024-12-21 01:22 | disposition home or self-care (01) ==
LOC: LOS 01:21
PROVIDERS: PCP Family Medicine; Visit Provider Family Medicine
DX: I10 Essential (primary) hypertension (principal)
CPT/HCPCS: 36415; 80053

== ENCOUNTER 2024-12-28 00:40 | Outpatient (CLI) | payer MEDICARE, SELFPAY ==
[2024-12-28 12:52] LABS: ALT 31 U/L (14-59); AST 26 U/L (15-37); Albumin 3.5 g/dL (3.4-5.0); Alkaline Phosphatase 234 U/L (46-116); Anion Gap 6.3 mmol/L (3-11); BUN 40 mg/dL (7-18); Bilirubin, Total 0.35 mg/dL (0.2-1.0); CO2 27.7 mmol/L (21.0-32.0); CREATININE 1.9 mg/dL (0.55-1.02); Calcium 9.2 mg/dL (8.5-10.1); Chloride 105 mmol/L (98-107); Estimated GFR 27.37 (mL/min/1.73m2); Glucose 152 mg/dL (74-106); Potassium 3.4 mmol/L (3.5-5.1); Sodium 139 mmol/L (136-145); Total Protein 8.5 g/dL (6.4-8.2)
== END 2024-12-28 00:41 | disposition home or self-care (01) ==
LOC: LOS 00:40
PROVIDERS: PCP Family Medicine; Visit Provider Family Medicine
DX: I10 Essential (primary) hypertension (principal)
CPT/HCPCS: 36415; 80053

== ENCOUNTER → 2025-01-03 12:45 | Outpatient (BNVA) | payer MEDICARE, SELFPAY | PROVIDERS: PCP Family Medicine; Visit Provider Internal Medicine Cardiovascular Disease | DX: I50.9 Heart failure, unspecified (principal); Z95.2 Presence of prosthetic heart valve; I25.10 Atherosclerotic heart disease of native coronary artery without angina pectoris | CPT/HCPCS: 99214 ==

== ENCOUNTER 2025-02-08 00:57 | Outpatient (CLI) | payer MEDICARE, SELFPAY ==
[2025-02-08 12:37] LABS: HGB 12.7 g/dL (11.2-15.7); MCH 25.8 pg (27.0-33.0); MCV 83 fL (80-95); MPV 10.1 fL (8.0-11.0); Platelet Count 287 10^3/uL (130-400); RBC 4.92 10^6/uL (3.93-5.22); RDW 20.9 % (11.7-14.6); RDW-SD 62.4 fL; WBC 12.57 10^3/uL (4.4-10.8)
[2025-02-08 12:57] LABS: ALT 27 U/L (14-59); AST 28 U/L (15-37); Albumin 3.7 g/dL (3.4-5.0); Alkaline Phosphatase 219 U/L (46-116); Anion Gap 7.3 mmol/L (3-11); BUN 29 mg/dL (7-18); Bilirubin, Total 0.8 mg/dL (0.2-1.0); CO2 30.7 mmol/L (21.0-32.0); CREATININE 1.7 mg/dL (0.55-1.02); Calcium 9.6 mg/dL (8.5-10.1); Chloride 104 mmol/L (98-107); Estimated GFR 31.27 (mL/min/1.73m2); Glucose 100 mg/dL (74-106); NT-proBNP 2600 pg/mL (<300); Sodium 142 mmol/L (136-145); Total Protein 8.2 g/dL (6.4-8.2)
== END 2025-02-08 00:58 | disposition home or self-care (01) ==
LOC: LOS 00:57
PROVIDERS: PCP Family Medicine; Visit Provider Family Medicine
DX: I10 Essential (primary) hypertension (principal); I50.9 Heart failure, unspecified; Z79.01 Long term (current) use of anticoagulants
CPT/HCPCS: 36415; 80053; 85027; 83880

== ENCOUNTER 2025-03-06 02:15 | Outpatient (CLI) | payer MEDICARE, SELFPAY ==
--- NOTE | 2025-03-06 07:00 | DI.CTLCSR_ITS ---
Exam(s) CT CHEST LUNG CANCER SCREEN EXAM: CT CHEST LUNG CANCER SCREEN CLINICAL HISTORY: Screening for lung cancer,former tobacco user,z87.891 TECHNIQUE: Imaging Protocol: Axial computed tomography images with coronal and sagittal reformatted images were created and reviewed. Lung Computer Aided Detection (CAD) was utilized. COMPARISON: CT CT CHEST LUNG CANCER SCREEN from 11/30/2023 FINDINGS: Tracheobronchial tree: Patent where visualized. No bronchiectasis. Pulmonary parenchyma: Mild centrilobular emphysematous changes are present. No architectural distort ion. No focal consolidating infiltrates are present. Lung Nodules: There is no change in size of the nodule in the posterior medial aspect of the right lo wer lobe. No new pulmonary nodules are present. Mediastinum and Irina: No dominant adenopathy or fluid collection. The esophagus is unremarkable. Thyroid gland: Unremarkable. Lymph nodes: Unremarkable. Pleura: No effusion or pneumothorax. Heart: Cardiomegaly. There is a mitral valve prosthesis. Two vessel coronary artery calcification i s present. No pericardial effusion. Aorta: Thoracic aorta non-dilated.Atherosclerotic calcification is present. Upper abdomen: Unremarkable. Soft Tissues: Unremarkable. Bones: Within normal limits. Sternal wires are in place. IMPRESSION: No new pulmonary nodules. Lung RADS Cat 2 - Benign Appearance / Behavior: Nodules with a very low likelihood of becoming a clin ically active cancer due to size or lack of growth Lung-RADS 1.0 CATEGORIES: Category 0 - Prior chest CT exam(s) being located for comparison. Category 1 - Annual screening in 12 months. No nodules or definitely benign nodules. Category 2 - Annual screening in 12 months. Benign appearance. Nodules with low likelihood of becomin g active cancer. Category 3 - 6-month follow-up. Probably benign. Short-term follow-up suggested. Nodules with low lik elihood of becoming active cancer. Category 4A - 3-month follow-up and CT/PET if >8 mm in size. Suspicious finding. Findings which requi re additional testing. Category 4B - Findings which require additional testing and tissue sampling. Suspicious finding. Category 4X - Category 3 or 4 nodules with additional features or imaging findings that increases the suspicion of malignancy. Modifier S- Potentially clinically significant finding. (Non lung cancer) RADIATION DOSE DELIVERED: 20.98mGy.cm Total DLP 20.98mGy.cmTotal DLP DATA REPOSITORY: All CT scans at this facility are submitted to the National Radiology Data Registry (NRDR) Dose Index Registry (DIR) with the [employer] (ACR). RADIATION OPTIMIZATION: All CT scans at this facility use at least one of these dose optimization te chniques: automated exposure control; mA and/or kV adjustment per patient size (includes targeted exa ms where dose is matched to clinical indication); or iterative reconstruction.
--- NOTE | 2025-03-06 07:00 | DI.MAMMO_ITS ---
Exam(s) MAMMO SCREENING EXAM: MAMMO SCREENING CLINICAL HISTORY: screening,z12.39 TECHNIQUE: Bilateral full field digital CC and MLO mammographic images were obtained with 3D tomosyn thesis and utilizing computer aided detection (CAD). COMPARISON: Available for comparison. FINDINGS: Masses/Architectural Distortion: No suspicious masses or areas of architectural distortion are presen t. Microcalcifications: No suspicious pleomorphic-type are seen. Skin Thickening/Nipple Retraction: None. IMPRESSION: 1. No significant interval change with no specific features of malignancy noted. 2. Unless there is more urgent need, screening mammography is recommended, as per [employer] guidelines. BI-RADS Category 1 - Negative Breast Density - Category C - Heterogeneously dense Breast density category C or D implies that the patient has dense breast tissue. Dense breast tissue is very common and is not abnormal but dense breast tissue can make it harder to find cancer on a ma mmogram. Also, dense breast tissue may increase their breast cancer risk. This information about the result of the mammogram report was provided to the patient to raise their awareness. Use this report when you speak with the patient about their risks for breast cancer, which includes their family hist ory. At that time, you may recommend for more screening tests (Ultrasound or MRI) as they might be us eful based on their risk. A negative radiographic report should not delay biopsy if a dominant or clinically suspicious mass is present. Up to ten percent of cancers are not identified on mammography. A negative report may reinforce clinical impression. Adenosis and dense breasts may obscure an underlying neoplasm. False positive reports average 6 to 10%. Patient will receive a letter notifying them of these results.
== END 2025-03-06 02:35 ==
LOC: DI 02:15
PROVIDERS: PCP Family Medicine; Visit Provider Family Medicine
DX: Z12.31 Encounter for screening mammogram for malignant neoplasm of breast (principal); Z87.891 Personal history of nicotine dependence; Z12.2 Encounter for screening for malignant neoplasm of respiratory organs
CPT/HCPCS: 71271; 77063; 77067

== ENCOUNTER 2025-04-11 02:39 | Outpatient (CLI) | payer MEDICARE, SELFPAY ==
--- NOTE | 2025-04-11 07:45 | DI.DEXA_ITS ---
Exam(s) XR DEXA BONE DENSITY W/WO SARA EXAM: XR DEXA BONE DENSITY W/WO SARA CLINICAL HISTORY: post menopausal status,z78.0 TECHNIQUE: Routine DEXA evaluation of the lumbar spine, hip, or forearm. COMPARISON: Previous DEXA scan November 2008. FINDINGS: Performed on a [employer] unit. Lateral image: No compression fracture evident. Lumbar Spine total T-score: -3.4 which is in the osteoporosis range. Prior reading in 2008 was -2.0 Hip total T-score:-5.0 which is osteoporosis range. Prior reading in 2008 was -2.2 Independent reading at the level of the femoral neck yields T-score of -3.5 which is also osteo proc es range Forearm total T-score: -2.2 which is osteopenia range. IMPRESSION: Bone mineral density measures in the osteoporosis range in the lumbar spine and hip where there has b een significant progression of bone loss when compared to the prior study of 2008.. Fracture risk is high. Note: Any spine fracture indicates 5x risk for subsequent spine fracture and 2x risk for subsequent h ip fracture. World Health Organization criteria for BMD interpretation classify patients: Normal...... T- Score at or above -1.0 Osteopenic... T- Score between -1.0 and -2.5 Osteoporosis... T-Score at or below -2.5
== END 2025-04-11 02:59 ==
PROVIDERS: PCP Family Medicine; Visit Provider Family Medicine
DX: Z78.0 Asymptomatic menopausal state (principal); M85.89 Other specified disorders of bone density and structure, multiple sites
CPT/HCPCS: 77080

== ENCOUNTER 2025-06-05 02:28 | Outpatient (CLI) | payer MEDICARE, SELFPAY ==
[2025-06-05 12:42] LABS: HCT 40.6 % (36.0-46.0); HGB 12.9 g/dL (11.2-15.7); MCH 29.0 pg (27.0-33.0); MCHC 31.8 % (32.0-36.0); MCV 91 fL (80-95); MPV 10.4 fL (8.0-11.0); Platelet Count 262 10^3/uL (130-400); RBC 4.45 10^6/uL (3.93-5.22); RDW 14.8 % (11.7-14.6); RDW-SD 50.0 fL; WBC 11.94 10^3/uL (4.4-10.8)
[2025-06-05 13:25] LABS: ALT 50 U/L (14-59); AST 51 U/L (15-37); Albumin 3.6 g/dL (3.4-5.0); Alkaline Phosphatase 203 U/L (46-116); Anion Gap 8.6 mmol/L (3-11); BUN 26 mg/dL (7-18); Bilirubin, Total 0.6 mg/dL (0.2-1.0); CO2 30.4 mmol/L (21.0-32.0); Calcium 9.2 mg/dL (8.5-10.1); Calculated LDL 77 mg/dL (<100); Chloride 102 mmol/L (98-107); Cholesterol 150 mg/dL (<200); Estimated GFR 33.42 (mL/min/1.73m2); Glucose 92 mg/dL (74-106); HDL Cholesterol 53 mg/dL (>or=50); Potassium 3.6 mmol/L (3.5-5.1); Sodium 141 mmol/L (136-145); Total Protein 7.8 g/dL (6.4-8.2); Triglyceride 104 mg/dL (<150); Vitamin B12 590 pg/mL (193-986)
[2025-06-05 19:08] LABS: Hepatitis C Ab w Rflx HCV PCR Negative (Negative)
== END 2025-06-05 02:29 | disposition home or self-care (01) ==
LOC: LOS 02:28
PROVIDERS: PCP Family Medicine; Visit Provider Family Medicine
DX: Z11.59 Encounter for screening for other viral diseases (principal); I10 Essential (primary) hypertension; D64.9 Anemia, unspecified; E53.8 Deficiency of other specified B group vitamins
CPT/HCPCS: 36415; 80053; 80061; 85027; 86803; 82607

== ENCOUNTER → 2025-08-13 09:54 | Outpatient (BNVA) | payer MEDICARE, SELFPAY | PROVIDERS: PCP Family Medicine; Visit Provider Internal Medicine Cardiovascular Disease | DX: Z95.2 Presence of prosthetic heart valve (principal); I25.10 Atherosclerotic heart disease of native coronary artery without angina pectoris; I50.42 Chronic combined systolic (congestive) and diastolic (congestive) heart failure | CPT/HCPCS: 99214 ==

== ENCOUNTER → 2025-09-19 02:07 | Outpatient (CLI) | payer MEDICARE, SELFPAY ==
--- NOTE | 2025-09-19 06:15 | DI.US_ITS ---
APPROVED REPORT EXAM: Comprehensive 2D, Doppler, and color-flow Echocardiogram Patient Location: Out-Patient City Maintenance Manager: Brigitte Oneil RDCS (AE) Indications: LV function, MR, s/p Transcatheter mitral valve replacement, CABG Other Information Study Quality: Adequate Conclusion Borderline dilated left ventricle. Ejection fraction is 60%. 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 The remainder of the ventricle contracts normally Mildly dilated right ventricle with preserved systolic function Moderately enlarged left atrium. Mildly enlarged right atrium Trileaflet aortic valve with trace regurgitation There is a transcatheter mitral valve replacement. There is moderate central residual mitral regurgitation Ptod-hy-tvial interatrial shunt noted Mild to moderate tricuspid regurgitation. Estimated right ventricular systolic pressure is 59 mmHg Wall motion Left Ventricle Basal posterior aneurysm is present. Left ventricle is borderline dilated. The left ventricular systolic function is normal. The left ventricular ejection fraction is within the normal range. There is normal left ventricular wall thickness. There is normal LV segmental wall motion with the exception of the basal aneurysm. There is no ventricular septal defect visualized. LVEF is 60%. Right Ventricle Right ventricle is mildly dilated. The right ventricular systolic function is normal. Atria Left atrium is moderately dilated. Right atrium is mildly dilated. Doppler shows left to right interatrial shunt. Aortic Valve The aortic valve is normal in structure. Aortic valve is trileaflet. There is no aortic valvular stenosis. Trace aortic regurgitation. Mitral Valve Mild paravalvular leak Moderate mitral regurgitation. TMVR valve is present. Tricuspid Valve The tricuspid valve is normal in structure. There is no tricuspid valve stenosis. Mild to moderate tricuspid regurgitation. The RVSP is 58.6 mmHg. Pulmonic Valve The pulmonary valve is normal in structure. There is no pulmonic valvular stenosis. Mild to moderate pulmonic regurgitation. Great Vessels The aortic root is normal in size. The ascending aorta is normal in size. Aortic arch is normal in caliber. The IVC collapses <50% with inspiration. Pericardium There is no pericardial effusion. 2D Dimensions IVSD d PLAX 1.00 cm F: 0.6-1.0 Ao Root d 2.62 cm F: 2.7 - 3.3 LVPW d PLAX 1.00 cm F: 0.6 - 1.0 Ao Asc Diam d 2.89 cm F: 2.3 - 3.1 LVID d PLAX 5.20 cm F: 3.8 - 5.2 LVDs 3.50 cm F: 2.2 - 3.5 LV EF Teichholz 60.2 % FS 32.30 % LV EDV (Teich) 127.8 mL LV ESV (Teich) 50.9 mL M-Mode TAPSE 1.70 cm (M/F) >1.7 Auto EF LV EDV A4C 158.2 mL LV EDV A2C 181.4 mL LV EDV BP 174.2 mL LV ESV A4C 66.7 mL LV ESV A2C 72.6 mL LV ESV BP 69.8 mL LVEF(%) A4C 57.8 % LVEF(%) A2C 60.0 % LVEF(%) BP 59.9 % LV SV A4C 91.5 ml LV SV A2C 108.8 ml LV SV BP 104.4 ml LV CO A4C 5.8 L/min LV CO A2C 6.6 L/min LV CO BP 6.2 L/min HR A4C 63.72 BPM HR A2C 60.51 BPM LV EDV Index (BP) LA Volume LA Length A4C 5.9 cm LA Length A2C 5.4 cm LA Area A4C s 25.90 cm2 LA Area A2C s 20.74 cm2 LA Vol A4C A-L 97.01 mL LA Vol A2C A-L 67.33 mL LA Vol Biplane A-L 84.1 mL LA Vol/BSA A4C A-L LA Vol/BSA A2C A-L LA Vol/BSA BP A-L 55.7 mL/m2 LA Vol A4C MOD 89.1 mL LA Vol A2C MOD 62.8 mL LA Vol BP MOD 77.1 mL RA Volume RA Area A4C 15.9 cm2 RA ESV A4C (A-L) 45.9mL RA Vol/BSA A4C A-L RA Length A4C 4.7 cm RA ESV A4C (MOD) 42.8mL LV Diastology MV E Vmax 2.27 (0.4-1.3 m/s) Aortic Valve AoV Vmax 1.62 m/s LVOT Vmax 1.11 m/s AoV Peak Grad 10.5 mmHg LVOT Peak Grad 4.9 mmHg AoV Area (Vmax) 1.69 cm2 LVOT VTI 0.240 m AoV VTI 0.367 m LVOT Mean Grad 2.5 mmHg AoV Mean Abhijeet. 1.01 m/s LVOT SV 59.49 mL AoV Mean Grad 4.8 mmHg LVOT Diam s 1.75 cm AoV Area (VTI) 1.62 cm2 AV Regurg Peak Gr. 10.55 mmHg Velocity Ratio 0.69 Mitral Valve MV Vmax TIPS 2.50 m/s MR Vmax 5.67 m/s MV Mean Grad 9.2 (<2mmHg) MR VTI 2.037 m MV PHT 105 msec MR Peak Grad 128.8 mmHg MV Area PHT 2.09 cm2 MR Mean Grad 93.2 mmHg MV VTI 0.825 m Pulmonary Valve PV Vmax 1.24 (0.5-1.5 m/s) RVOT Vmax 0.62 m/s PV Peak Grad 6.1 mmHg RVOT Peak Gr. 1.5 mmHg PV Mean Abhijeet 0.70 m/s RVOT VTI 0.178 m PV Mean Grad 2.3 mmHg RVOT Mean Gr. 0.8 mmHg Tricuspid Valve RA Pressure 8.00 mmHg TR Vmax 3.56 m/s TV S' 0.11 m/s TR Peak Grad 50.5 mmHg RVSP (TR) 58.6 mmHg
== END ==
PROVIDERS: PCP Family Medicine; Visit Provider Internal Medicine Cardiovascular Disease
DX: I51.7 Cardiomegaly (principal); Z95.2 Presence of prosthetic heart valve
CPT/HCPCS: 93306

== ENCOUNTER 2025-09-24 08:26 | Outpatient (CLI) | payer MEDICARE, SELFPAY ==
--- NOTE | 2025-09-24 08:15 | RT.EKG_ITS ---
APPROVED REPORT Exam: Resting ECG Reason for Exam: CAD Patient Location: O HR:66 bpm ECG Measurements Heart Rate 66 AXIS NE 198 P 62 QRSd 118 QRS -1 QT 433 T -28 QTc 454 Conclusion Sinus rhythm...normal P axis, V-rate 50- 99 Left atrial enlargement...P, P'>60mS, <-0.15mV V1 Left ventricular hypertrophy
== END 2025-09-24 08:27 | disposition home or self-care (01) ==
LOC: DI.CARD 08:28
PROVIDERS: PCP Family Medicine; Visit Provider Internal Medicine Cardiovascular Disease
DX: I25.10 Atherosclerotic heart disease of native coronary artery without angina pectoris (principal); I51.7 Cardiomegaly
CPT/HCPCS: 93010

== ENCOUNTER → 2025-09-24 10:50 | Outpatient (BNVA) | payer MEDICARE, SELFPAY | PROVIDERS: PCP Family Medicine; Visit Provider Internal Medicine Cardiovascular Disease | DX: I25.10 Atherosclerotic heart disease of native coronary artery without angina pectoris (principal); Z95.2 Presence of prosthetic heart valve | CPT/HCPCS: 99213; 93005 ==